=== PATIENT | female | born 1945 | race African-American/Black ===

== ENCOUNTER 2017-05-01 13:30 | Inpatient (IN) | payer MEDICARE ==
[~2017-05-01] VITALS: Ht 167.6 cm; Wt 53.5 kg
[~2017-05-01 13:30] MED LIST: ALPR0.5T PO; BENA20TA3 PO; BENZ100C86 PO; BENZ1LOZ60 MM; DEXT1DRO3 OP; ESTR1TAB17 PO; FLUR15CA14 PO; LEVA1.2526 IH; METH-612 PO; OMEP20CA10 PO; PROAIR ORI; ROSU10TA PO; SODI45SP35 NS; SPIRIVA ORI; SYMBICORT ORI; THEO80SO4 PO
[2017-05-01] MEDS ORDERED: ACETAMINOPHEN 325MG TABLET PO STA (17:11)
[2017-05-01] MEDS ORDERED: SODIUM CHLORIDE 0.9% 1000ML BAG (SEPSIS BOLUS) IV ONE (17:15)
[2017-05-01 17:43] LABS: CHLORIDE 102 mEq/L (98-107)
[2017-05-01 17:44] LABS: HEMATOCRIT. 40.6 % (36.0-48.0); HEMOGLOBIN. 13.4 g/dL (12.0-16.0); MEAN CORPUSCULAR VOLUME 87.6 fL (81.0-99.0); MEAN PLATELET VOLUME 7.5 fl (7.4-10.4); PLATELET 248 x1000/uL (130-400); PROTHROMBIN TIME 10.5 sec (9.4-11.6); RED BLOOD CELL COUNT 4.63 mill/uL (4.2-5.4); RED CELL DISTRIBUTION WIDTH 14.9 % (11.6-14.6)
[2017-05-01 17:52] LABS: CARBON DIOXIDE 25 mEq/L (21-32)
[2017-05-01 18:16] LABS: PLATELET ESTIMATE NORMAL
[2017-05-01 20:18] LABS: COLOR URINE YELLOW (YELLOW)
[2017-05-01 20:20] LABS: CLARITY URINE CLEAR (CLEAR)
[2017-05-01 20:22] LABS: PROTEIN URINE NEGATIVE (NEGATIVE)
[2017-05-01 20:23] LABS: KETONES URINE TRACE (NEGATIVE); NITRITE URINE NEGATIVE (NEGATIVE); OCCULT BLOOD URINE 1+ (NEGATIVE); UROBILINOGEN URINE 0.2 E.U./dL (0.2-1.0)
[2017-05-01 20:24] LABS: LEUKOCYTE ESTERASE URINE 2+ (NEGATIVE)
[2017-05-01] MEDS ORDERED: CEFTRIAXONE 1 G PREMIX 50 ML IV ONE (21:00)
[2017-05-01] MEDS ORDERED: DIPHENHYDRAMINE 50MG/ML VIAL IV ONE (21:00)
[2017-05-01] MEDS ORDERED: SODIUM CHLORIDE 0.9% 1,000 ML IV SCH (21:12)
[2017-05-01] MEDS ORDERED: IPRATROPIUM/ALBUTEROL 0.5-3(2.5)MG/3ML NEB HHN ONE (23:00)
[2017-05-02] MEDS ORDERED: ACETAMINOPHEN 325MG TABLET PO ONE ×2 (03:00→13:00)
[2017-05-02] MEDS ORDERED: ALBUTEROL (0.5%) 2.5MG/0.5ML NEB HHN ONE (11:30)
[2017-05-02] MEDS ORDERED: CEFTRIAXONE 1 G PREMIX 50 ML IV NR (12:00)
[2017-05-02] MEDS ORDERED: DIPHENHYDRAMINE 50MG/ML VIAL IV ONE (12:00)
[2017-05-02] MEDS ORDERED: LOSARTAN POTASSIUM 50 MG TABLET PO NR (13:15)
[2017-05-02 14:14] LABS: BG BASE EXCESS 0.5 mmol/L (-2.0-2.0); BG CARBOXYHEMOGLOBIN 0.3 % (0.5-1.5); BG DEOXYHEMOGLOBIN 4.2 % (0.0-5.0); BG HCO3 ACT 23.3 mmol/L (22.0-26.0); BG OXYGEN SATURATION 95.8 % (92.0-98.5); BG OXYHEMOGLOBIN 95.5 % (94.0-97.0); BG PCO2 31.7 mmHg (35.0-45.0); BG PH 7.485 (7.350-7.450); BG PO2 82.7 mmHg (75.0-100.0); BG SAMPLE SITE LEFT RADIAL; BG TOTAL HEMOGLOBIN 11.7 g/dL (12.0-18.0); BG VENT MODE ROOM AIR
[2017-05-02] MEDS ORDERED: IPRATROPIUM/ALBUTEROL 0.5-3(2.5)MG/3ML NEB HHN PRN (16:00)
[2017-05-02] MEDS ORDERED: METHYLPREDNISOLONE SOD SUCC 125 MG/2 ML VIAL IV NR (16:00)
[2017-05-02] MEDS: MONTELUKAST SODIUM 10MG TABLET PO SCH (16:00)
[2017-05-02] MEDS ORDERED: METHYLPREDNISOLONE SOD SUCC 40 MG/ML VIAL IV SCH (22:00)
[2017-05-03] MEDS: ACETAMINOPHEN 325MG TABLET PO PRN ×2 (02:16→13:33)
[2017-05-03] MEDS: IPRATROPIUM/ALBUTEROL 0.5-3(2.5)MG/3ML NEB HHN SCH ×3 (03:10→14:00)
[2017-05-03 06:15] LABS: HEMATOCRIT. 33.9 % (36.0-48.0); HEMOGLOBIN. 11.2 g/dL (12.0-16.0); MEAN CORPUSCULAR HEMOGLOBIN 28.9 pg (28.0-32.0); MEAN CORPUSCULAR VOLUME 87.2 fL (81.0-99.0); MEAN PLATELET VOLUME 7.4 fl (7.4-10.4); PLATELET 249 x1000/uL (130-400); RED BLOOD CELL COUNT 3.88 mill/uL (4.2-5.4); RED CELL DISTRIBUTION WIDTH 14.6 % (11.6-14.6)
[2017-05-03 06:32] LABS: CARBON DIOXIDE 29 mEq/L (21-32); CHLORIDE 105 mEq/L (98-107); HDL CHOLESTEROL 96 mg/dL (40-59); LDL CHOLESTEROL 71 mg/dL (5-100)
[2017-05-03 08:17] LABS: PLATELET ESTIMATE NORMAL
[2017-05-03 08:50] VITALS: BP 122/67
[2017-05-03 09:00] VITALS: BP 122/67
[2017-05-03 10:34] LABS: HEPATITIS B SURFACE ANTIGEN NEGATIVE
[2017-05-03 11:02] LABS: HEPATITIS B CORE AB IGM NEGATIVE
[2017-05-03 11:04] LABS: HEPATITIS A AB IGM NEGATIVE (NEGATIVE)
[2017-05-03 12:00] VITALS: BP 124/58
[2017-05-03] MEDS ORDERED: TEMA30CA PO (12:08)
[2017-05-03] MEDS ORDERED: TRAM50TA3 PO (12:09)
[2017-05-03] MEDS ORDERED: ATOR80TA PO (12:17)
[2017-05-03] MEDS: LOSARTAN POTASSIUM 50 MG TABLET PO SCH (13:33)
[2017-05-03] MEDS: CEFTRIAXONE 1 G PREMIX 50 ML IV SCH (13:33)
[2017-05-03] MEDS: DIPHENHYDRAMINE 50MG/ML VIAL IV PRN (15:15)
[2017-05-03 16:00] VITALS: BP 132/71
[2017-05-03 20:00] VITALS: BP 130/62
[2017-05-03] MEDS: TEMAZEPAM 15MG CAPSULE PO PRN (20:53)
[2017-05-03] MEDS: MONTELUKAST SODIUM 10MG TABLET PO SCH (21:00)
[2017-05-03] MEDS ORDERED: THEOPHYLLINE ANHYDROUS 80 MG/15 ML 120ML PO NR (21:00)
[2017-05-03] MEDS ORDERED: THEOPHYLLINE ANHYDROUS 80 MG/15 ML 120ML PO SCH (21:00)
[2017-05-03] MEDS: IPRATROPIUM/ALBUTEROL 0.5-3(2.5)MG/3ML NEB HHN PRN (21:17)
[2017-05-03] MEDS: ALPRAZOLAM 0.5 MG TABLET PO PRN (23:42)
[2017-05-04] VITALS: BP 110/64
[2017-05-04] MEDS: IPRATROPIUM/ALBUTEROL 0.5-3(2.5)MG/3ML NEB HHN PRN ×2 (02:08→05:11)
[2017-05-04 04:00] VITALS: BP 123/66
[2017-05-04] MEDS ORDERED: METHYLPREDNISOLONE SOD SUCC 40 MG/ML VIAL IV SCH (06:00)
[2017-05-04 06:59] LABS: BASOPHILS % 0.2 % (0.0-2.0); EOSINOPHILS % 0.1 % (0.0-5.0); HEMATOCRIT. 30.2 % (36.0-48.0); LYMPHOCYTES % 12.8 % (20.0-50.0); MEAN CORPUSCULAR HEMOGLOBIN 28.9 pg (28.0-32.0); MEAN CORPUSCULAR VOLUME 87.3 fL (81.0-99.0); MEAN PLATELET VOLUME 7.7 fl (7.4-10.4); MONOCYTES % 8.3 % (2.0-8.0); NEUTROPHILS % 78.6 % (40.0-76.0); PLATELET 264 x1000/uL (130-400); RED BLOOD CELL COUNT 3.46 mill/uL (4.2-5.4); RED CELL DISTRIBUTION WIDTH 14.9 % (11.6-14.6)
[2017-05-04 08:00] VITALS: BP 135/69
[2017-05-04] MEDS: THEOPHYLLINE ANHYDROUS 80 MG/15 ML 120ML PO SCH ×3 (08:08→22:09)
[2017-05-04] MEDS: LOSARTAN POTASSIUM 50 MG TABLET PO SCH (08:08)
[2017-05-04 08:26] LABS: CARBON DIOXIDE 30 mEq/L (21-32); CHLORIDE 107 mEq/L (98-107)
[2017-05-04] MEDS: IPRATROPIUM/ALBUTEROL 0.5-3(2.5)MG/3ML NEB HHN SCH (08:47)
[2017-05-04] MEDS: CEFTRIAXONE 1 G PREMIX 50 ML IV SCH (10:36)
[2017-05-04] MEDS: DIPHENHYDRAMINE 50MG/ML VIAL IV PRN (10:37)
[2017-05-04] MEDS: AZITHROMYCIN 500 MG TABLET PO SCH (11:24)
[2017-05-04 12:00] VITALS: BP 127/72
[2017-05-04] MEDS: PROMETHAZINE/DEXTROMETHORPHAN 6.25-15MG/5ML BOTTLE 120ML PO PRN (13:59)
[2017-05-04] MEDS: THROAT LOZENGES-BENZOCAINE/MENTH/CETYLPYRD CL LOZENGES MM PRN (14:03)
[2017-05-04] MEDS: ALPRAZOLAM 0.5 MG TABLET PO PRN (15:43)
[2017-05-04 16:00] VITALS: BP 137/72
[2017-05-04] MEDS: ALBUTEROL (0.083%) 2.5MG/3ML NEB HHN PRN ×2 (17:40→21:18)
[2017-05-04] MEDS: MONTELUKAST SODIUM 10MG TABLET PO SCH (22:00)
[2017-05-04 23:53] VITALS: BP 141/73
[2017-05-05] MEDS: ALBUTEROL (0.083%) 2.5MG/3ML NEB HHN PRN ×6 (01:08→21:10)
[2017-05-05 04:00] VITALS: BP 130/69
[2017-05-05] MEDS: THEOPHYLLINE ANHYDROUS 80 MG/15 ML 120ML PO SCH ×4 (06:08→21:54)
[2017-05-05 08:00] VITALS: BP 156/82
[2017-05-05] MEDS: PROMETHAZINE/DEXTROMETHORPHAN 6.25-15MG/5ML BOTTLE 120ML PO PRN (08:57)
[2017-05-05] MEDS: THROAT LOZENGES-BENZOCAINE/MENTH/CETYLPYRD CL LOZENGES MM PRN (09:00)
[2017-05-05] MEDS: AZITHROMYCIN 500 MG TABLET PO SCH (11:00)
[2017-05-05] MEDS: LOSARTAN POTASSIUM 50 MG TABLET PO SCH (11:00)
[2017-05-05 12:00] VITALS: BP 164/78
[2017-05-05] MEDS ORDERED: NON FORMULARY PATIENT HOME MED EA XX SCH (12:30)
[2017-05-05] MEDS ORDERED: AMINOPHYLLINE 500 MG/20 ML IV SCH (14:15)
[2017-05-05] MEDS: AMINOPHYLLINE IV SCH (15:41)
[2017-05-05] MEDS: SODIUM CHLORIDE 0.9% IV SCH (15:41)
[2017-05-05] MEDS: METHYLPREDNISOLONE SOD SUCC 40 MG/ML VIAL IV SCH ×2 (15:43→21:44)
[2017-05-05 16:00] VITALS: BP 143/76
[2017-05-05 20:00] VITALS: BP 176/86
[2017-05-05] MEDS: IPRATROPIUM BROMIDE (0.02%) 0.5MG/2.5ML NEB HHN SCH (20:57)
[2017-05-05] MEDS: ALPRAZOLAM 0.5 MG TABLET PO PRN (21:50)
[2017-05-05] MEDS: TEMAZEPAM 15MG CAPSULE PO PRN (21:50)
[2017-05-06] VITALS: BP 143/74
[2017-05-06] MEDS: IPRATROPIUM BROMIDE (0.02%) 0.5MG/2.5ML NEB HHN SCH ×3 (00:33→20:53)
[2017-05-06] MEDS: ALBUTEROL (0.083%) 2.5MG/3ML NEB HHN PRN ×6 (02:02→20:57)
[2017-05-06 04:00] VITALS: BP 160/86
[2017-05-06] MEDS: METHYLPREDNISOLONE SOD SUCC 40 MG/ML VIAL IV SCH ×3 (05:28→21:28)
[2017-05-06] MEDS: THEOPHYLLINE ANHYDROUS 80 MG/15 ML 120ML PO SCH ×3 (05:30→21:29)
[2017-05-06 07:08] LABS: HEMATOCRIT. 36.2 % (36.0-48.0); HEMOGLOBIN. 11.9 g/dL (12.0-16.0); MEAN CORPUSCULAR HEMOGLOBIN 28.8 pg (28.0-32.0); MEAN CORPUSCULAR VOLUME 87.6 fL (81.0-99.0); MEAN PLATELET VOLUME 7.5 fl (7.4-10.4); PLATELET 337 x1000/uL (130-400); RED BLOOD CELL COUNT 4.13 mill/uL (4.2-5.4); RED CELL DISTRIBUTION WIDTH 14.6 % (11.6-14.6)
[2017-05-06 07:36] LABS: CARBON DIOXIDE 34 mEq/L (21-32); CHLORIDE 100 mEq/L (98-107); PHOSPHORUS 4.1 mg/dL (2.5-4.9); T4 FREE 1.07 ng/dL (0.76-1.46); THEOPHYLLINE 11.2 ug/mL (10-20)
[2017-05-06 08:00] VITALS: BP 134/76
[2017-05-06] MEDS: AZITHROMYCIN 500 MG TABLET PO SCH (08:11)
[2017-05-06] MEDS: LOSARTAN POTASSIUM 50 MG TABLET PO SCH (08:11)
[2017-05-06 08:30] LABS: BG BASE EXCESS 8.3 mmol/L (-2.0-2.0); BG CARBOXYHEMOGLOBIN 0.3 % (0.5-1.5); BG DEOXYHEMOGLOBIN 3.5 % (0.0-5.0); BG FRACTION INSPIRED OXYGEN 28; BG HCO3 ACT 33.1 mmol/L (22.0-26.0); BG OXYGEN SATURATION 96.5 % (92.0-98.5); BG OXYHEMOGLOBIN 96.2 % (94.0-97.0); BG PH 7.466 (7.350-7.450); BG PO2 81.3 mmHg (75.0-100.0); BG SAMPLE SITE RIGHT RADIAL; BG TOTAL HEMOGLOBIN 12.2 g/dL (12.0-18.0); BG VENT MODE NASAL CANNULA
[2017-05-06 16:00] VITALS: BP 110/74
[2017-05-06 16:23] LABS: ATYPICAL LYMPHOCYTES 2; NUCLEATED RED BLOOD CELLS 1 /100 WBC; PLATELET ESTIMATE NORMAL
[2017-05-06] MEDS: PROMETHAZINE/DEXTROMETHORPHAN 6.25-15MG/5ML BOTTLE 120ML PO PRN (16:46)
[2017-05-06] MEDS: AMINOPHYLLINE IV SCH (18:46)
[2017-05-06] MEDS: SODIUM CHLORIDE 0.9% IV SCH (18:46)
[2017-05-06 20:00] VITALS: BP 132/72
[2017-05-06] MEDS: ALPRAZOLAM 0.5 MG TABLET PO PRN (21:28)
[2017-05-06] MEDS: TEMAZEPAM 15MG CAPSULE PO PRN (21:28)
[2017-05-07] VITALS: BP 146/84
[2017-05-07] MEDS: ALBUTEROL (0.083%) 2.5MG/3ML NEB HHN PRN ×2 (00:33→04:37)
[2017-05-07] MEDS ORDERED: METHYLPREDNISOLONE SOD SUCC 40 MG/ML VIAL IV SCH (02:00)
[2017-05-07 04:00] VITALS: BP 158/87
[2017-05-07 08:05] VITALS: BP 166/74
[2017-05-07] MEDS: LOSARTAN POTASSIUM 50 MG TABLET PO SCH (08:28)
[2017-05-07 09:23] VITALS: BP 166/74
[2017-05-07] MEDS ORDERED: THEOPHYLLINE ANHYDROUS 80 MG/15 ML 120ML PO SCH (21:00)
== END 2017-05-07 11:20 | disposition home or self-care (01) | DRG 871 ==
LOC: ER 14:49 → EDBEDREQSVC 21:18 → EDBEDREQ 21:18 → SUPCPDRO 05-02 11:08 → ENRESERV 05-03 07:23 → 8WST 05-03 07:24
PROVIDERS: ADMIT Internal Medicine Pulmonary Disease; ATTEND Internal Medicine Pulmonary Disease
PROC: 05H533Z Insertion of Infusion Device into Right Subclavian Vein, Percutaneous Approach (ICD-10-PCS; principal; 2017-05-05)
PROC: B5161ZA Fluoroscopy of Right Subclavian Vein using Low Osmolar Contrast, Guidance (ICD-10-PCS; 2017-05-05)
PROC: B546ZZA Ultrasonography of Right Subclavian Vein, Guidance (ICD-10-PCS; 2017-05-05)
DX: A41.9 Sepsis, unspecified organism (principal); J18.9 Pneumonia, unspecified organism; E09.9 Drug or chemical induced diabetes mellitus without complications; D64.9 Anemia, unspecified; J44.0 Chronic obstructive pulmonary disease with (acute) lower respiratory infection; E78.5 Hyperlipidemia, unspecified; F41.9 Anxiety disorder, unspecified; J44.1 Chronic obstructive pulmonary disease with (acute) exacerbation; N39.0 Urinary tract infection, site not specified; R26.9 Unspecified abnormalities of gait and mobility; J20.9 Acute bronchitis, unspecified; I10 Essential (primary) hypertension; I25.10 Atherosclerotic heart disease of native coronary artery without angina pectoris; T38.0X5A Adverse effect of glucocorticoids and synthetic analogues, initial encounter; Z88.6 Allergy status to analgesic agent; Z88.1 Allergy status to other antibiotic agents; Z88.5 Allergy status to narcotic agent; Z88.2 Allergy status to sulfonamides; Z88.8 Allergy status to other drugs, medicaments and biological substances; Z82.49 Family history of ischemic heart disease and other diseases of the circulatory system
CPT/HCPCS: 36415; 36569; 36600; 71045; 71046; 76937; 77001; 80048; 80053; 80061; 80198; 81001; 82375; 82805; 82962; 83036; 83605; 83735; 83880; 84100; 84134; 84439; 84443; 84480; 85025; 85610; 86705; 86709; 86803; 87040; 87086; 87340; 87804; 93005; 94640; 94664; 97162; 97165; C1725; J0280; J0696; J1200; J2920; J2930; J7030; J7040; J7050; J7611; J7620

== ENCOUNTER 2018-08-01 13:13 | Inpatient (IN) | payer MEDICARE ==
[~2018-08-01] VITALS: Ht 152.4 cm; Wt 54.9 kg
[~2018-08-01 13:13] MED LIST changes: +ATOR80TA PO; +BENA20TA10 PO; -BENA20TA3 PO; -BENZ100C86 PO; -BENZ1LOZ60 MM; -ESTR1TAB17 PO; -FLUR15CA14 PO; -ROSU10TA PO; -SODI45SP35 NS; +TEMA30CA PO; +TRAM50TA3 PO
[2018-08-01] MEDS ORDERED: IPRATROPIUM/ALBUTEROL 0.5-3(2.5)MG/3ML NEB HHN ONE (14:30)
[2018-08-01 14:31] LABS: CLARITY URINE CLOUDY (CLEAR); COLOR URINE DARK YELLOW (YELLOW); KETONES URINE TRACE (NEGATIVE); LEUKOCYTE ESTERASE URINE 1+ (NEGATIVE); NITRITE URINE NEGATIVE (NEGATIVE); OCCULT BLOOD URINE 1+ (NEGATIVE); PH URINE 5.5 (4.5-8.0); PROTEIN URINE 2+ (NEGATIVE); SPECIFIC GRAVITY URINE 1.028 (1.005-1.030)
[2018-08-01 14:32] LABS: BASOPHILS % 0.5 % (0.0-2.0); EOSINOPHILS % 0.2 % (0.0-5.0); HEMATOCRIT. 34.1 % (36.0-48.0); LYMPHOCYTES % 14.1 % (20.0-50.0); MEAN CORPUSCULAR HEMOGLOBIN 27.8 pg (28.0-32.0); MEAN PLATELET VOLUME 7.4 fl (7.4-10.4); MONOCYTES % 14.8 % (2.0-8.0); NEUTROPHILS % 70.4 % (40.0-76.0); PLATELET 303 x1000/uL (130-400); RED BLOOD CELL COUNT 3.97 mill/uL (4.2-5.4); RED CELL DISTRIBUTION WIDTH 15.7 % (11.6-14.6)
[2018-08-01 14:39] LABS: CHLORIDE 99 mEq/L (98-107)
[2018-08-01 14:47] LABS: *AMPHETAMINES SCREEN URINE NEGATIVE (NEGATIVE); *BARBITURATES SCREEN URINE NEGATIVE (NEGATIVE); *BENZODIAZEPINES SCREEN URINE NEGATIVE (NEGATIVE); *COCAINE SCREEN URINE NEGATIVE (NEGATIVE); METHADONE URINE SCREEN NEGATIVE (NEGATIVE); OPIATES URINE SCREEN NEGATIVE (NEGATIVE)
[2018-08-01 14:48] LABS: CANNABINOID URINE SCREEN NEGATIVE (NEGATIVE); PHENCYCLIDINE URINE SCREEN NEGATIVE (NEGATIVE)
[2018-08-01] MEDS ORDERED: ALBUTEROL (0.083%) 2.5MG/3ML NEB HHN ONE (15:00)
[2018-08-01] MEDS ORDERED: PREDNISONE 5MG TABLET PO ONE (15:15)
[2018-08-01] MEDS ORDERED: METHYLPREDNISOLONE SOD SUCC 40 MG/ML VIAL IV ONE (15:45)
[2018-08-01] MEDS ORDERED: AZITHROMYCIN 500 MG in DEXT 5% WATER 250 ML IV SCH (18:00)
[2018-08-02] VITALS (7 sets, daily range): BP systolic 119–136; BP diastolic 53–66
[2018-08-02] MEDS ORDERED: ACETAMINOPHEN 325MG TABLET PO PRN (01:30)
[2018-08-02] MEDS ORDERED: AZITHROMYCIN 500 MG in DEXT 5% WATER 250 ML IV SCH (01:30)
[2018-08-02] MEDS ORDERED: ALBUTEROL (0.083%) 2.5MG/3ML NEB HHN PRN ×2 (01:30→03:00)
[2018-08-02] MEDS: TEMAZEPAM 15MG CAPSULE PO PRN ×2 (01:46→21:26)
[2018-08-02] MEDS: ALPRAZOLAM 0.5 MG TABLET PO PRN ×2 (02:54→10:40)
[2018-08-02] MEDS ORDERED: THEOPHYLLINE ANHYDROUS 80 MG/15 ML 120ML PO SCH ×3 (03:15→06:00)
[2018-08-02] MEDS ORDERED: METHOCARBAMOL 750MG TABLET PO PRN (03:15)
[2018-08-02] MEDS: SODIUM CHLORIDE 0.9% 1,000 ML IV SCH ×2 (04:48→18:30)
[2018-08-02] MEDS: ALBUTEROL (0.083%) 2.5MG/3ML NEB HHN SCH ×5 (04:58→23:37)
[2018-08-02] MEDS ORDERED: ALBUTEROL (0.083%) 2.5MG/3ML NEB HHN SCH (06:00)
[2018-08-02] MEDS: OMEPRAZOLE 20MG CAPSULE EXTENDED RELEASE PO SCH (07:00)
[2018-08-02] MEDS: BENAZEPRIL 10MG TABLET PO SCH (10:28)
[2018-08-02] MEDS: PROMETHAZINE/DEXTROMETHORPHAN 6.25-15MG/5ML BOTTLE 120ML PO PRN ×2 (10:40→21:57)
[2018-08-02] MEDS ORDERED: DIPHENHYDRAMINE 25MG CAPSULE PO PRN (12:45)
[2018-08-02] MEDS ORDERED: ACETAMINOPHEN 500MG TABLET PO PRN (12:45)
[2018-08-02] MEDS: TRAMADOL 50MG TABLET PO PRN (13:45)
[2018-08-02] MEDS: METHYLPREDNISOLONE SOD SUCC 40 MG/ML VIAL IV SCH ×2 (13:49→21:26)
[2018-08-02] MEDS: CYCLOBENZAPRINE 10MG TABLET PO SCH ×2 (14:11→21:26)
[2018-08-02] MEDS: AZITHROMYCIN 500 MG in DEXT 5% WATER 250 ML IV SCH (18:30)
[2018-08-02] MEDS ORDERED: ATORVASTATIN CALCIUM 20MG TABLET PO SCH (21:00)
[2018-08-02] MEDS ORDERED: CYCLOBENZAPRINE 10MG TABLET PO SCH (21:00)
[2018-08-02] MEDS: GUAIFENESIN 600MG ER TABLET PO SCH (21:26)
[2018-08-02] MEDS: ATORVASTATIN CALCIUM 40MG TABLET PO SCH (21:26)
[2018-08-02] MEDS: POLYVINYL ALCOHOL OPHTH DROPS 15ML BOTHEYE PRN (22:21)
[2018-08-03] MEDS: ALBUTEROL (0.083%) 2.5MG/3ML NEB HHN SCH ×4 (02:43→20:41)
[2018-08-03 04:00] VITALS: BP 127/56
[2018-08-03 06:51] LABS: HEMOGLOBIN. 9.1 g/dL (12.0-16.0); MEAN CORPUSCULAR HEMOGLOBIN 27.8 pg (28.0-32.0); MEAN CORPUSCULAR VOLUME 85.7 fL (81.0-99.0); MEAN PLATELET VOLUME 7.7 fl (7.4-10.4); PLATELET 321 x1000/uL (130-400); RED BLOOD CELL COUNT 3.27 mill/uL (4.2-5.4); RED CELL DISTRIBUTION WIDTH 15.9 % (11.6-14.6)
[2018-08-03] MEDS: OMEPRAZOLE 20MG CAPSULE EXTENDED RELEASE PO SCH (07:01)
[2018-08-03] MEDS: METHYLPREDNISOLONE SOD SUCC 40 MG/ML VIAL IV SCH ×2 (07:01→13:47)
[2018-08-03] MEDS: PROMETHAZINE/DEXTROMETHORPHAN 6.25-15MG/5ML BOTTLE 120ML PO PRN ×2 (07:02→17:54)
[2018-08-03 07:46] LABS: CHLORIDE 105 mEq/L (98-107)
[2018-08-03 07:54] LABS: PHOSPHORUS 3.1 mg/dL (2.5-4.9)
[2018-08-03 08:00] VITALS: BP 136/63
[2018-08-03] MEDS: BENAZEPRIL 10MG TABLET PO SCH (09:14)
[2018-08-03] MEDS: GUAIFENESIN 600MG ER TABLET PO SCH ×2 (09:14→20:54)
[2018-08-03] MEDS: CYCLOBENZAPRINE 10MG TABLET PO SCH ×2 (09:14→20:54)
[2018-08-03 12:00] VITALS: BP 142/71
[2018-08-03 13:13] LABS: PLATELET ESTIMATE NORMAL
[2018-08-03] MEDS: SODIUM CHLORIDE 0.9% 1,000 ML IV SCH ×2 (13:47→19:30)
[2018-08-03 16:00] VITALS: BP 160/73
[2018-08-03] MEDS: AZITHROMYCIN 500 MG in DEXT 5% WATER 250 ML IV SCH (17:35)
[2018-08-03] MEDS: DIPHENHYDRAMINE 50MG/ML VIAL IV PRN ×2 (17:35→22:48)
[2018-08-03] MEDS: TRAMADOL 50MG TABLET PO PRN (17:43)
[2018-08-03 20:00] VITALS: BP 166/73
[2018-08-03] MEDS: ATORVASTATIN CALCIUM 40MG TABLET PO SCH (20:54)
[2018-08-03] MEDS: POLYVINYL ALCOHOL OPHTH DROPS 15ML BOTHEYE PRN (20:54)
[2018-08-03] MEDS: TEMAZEPAM 15MG CAPSULE PO PRN (20:54)
[2018-08-03] MEDS ORDERED: MEROPENEM 1,000 MG in SODIUM CHLORIDE 0.9% 100 ML IV SCH (22:00)
[2018-08-03] MEDS: MEROPENEM 1000MG in NORMAL SALINE 100ML IV SCH (22:54)
[2018-08-04] VITALS: BP 124/61
[2018-08-04] MEDS ORDERED: AMIKACIN SULFATE 400 MG in SODIUM CHLORIDE 0.9% 100 ML IV NR ×2
[2018-08-04] MEDS: DIPHENHYDRAMINE 50MG/ML VIAL IV PRN ×3 (00:48→22:28)
[2018-08-04] MEDS: ALBUTEROL (0.083%) 2.5MG/3ML NEB HHN SCH ×6 (01:13→20:14)
[2018-08-04] MEDS: PROMETHAZINE/DEXTROMETHORPHAN 6.25-15MG/5ML BOTTLE 120ML PO PRN ×2 (01:14→20:30)
[2018-08-04 04:00] VITALS: BP 133/62
[2018-08-04] MEDS: SODIUM CHLORIDE 0.9% 1,000 ML IV SCH ×2 (05:17→22:28)
[2018-08-04] MEDS: OMEPRAZOLE 20MG CAPSULE EXTENDED RELEASE PO SCH (06:30)
[2018-08-04 06:58] LABS: HEMATOCRIT. 28.7 % (36.0-48.0); HEMOGLOBIN. 9.2 g/dL (12.0-16.0); MEAN CORPUSCULAR HEMOGLOBIN 27.6 pg (28.0-32.0); MEAN CORPUSCULAR VOLUME 86.5 fL (81.0-99.0); MEAN PLATELET VOLUME 7.7 fl (7.4-10.4); PLATELET 383 x1000/uL (130-400); RED BLOOD CELL COUNT 3.32 mill/uL (4.2-5.4); RED CELL DISTRIBUTION WIDTH 16.2 % (11.6-14.6)
[2018-08-04 07:45] LABS: CHLORIDE 108 mEq/L (98-107)
[2018-08-04 07:50] LABS: PHOSPHORUS 2.6 mg/dL (2.5-4.9)
[2018-08-04 08:00] VITALS: BP 149/73
[2018-08-04] MEDS ORDERED: ECONAZOLE NITRATE 1% CREAM 15GM TOP SCH (09:00)
[2018-08-04] MEDS: METHYLPREDNISOLONE SOD SUCC 40 MG/ML VIAL IV SCH (09:39)
[2018-08-04] MEDS: GUAIFENESIN 600MG ER TABLET PO SCH ×2 (09:39→20:30)
[2018-08-04] MEDS: MEROPENEM 1000MG in NORMAL SALINE 100ML IV SCH ×2 (09:39→23:09)
[2018-08-04] MEDS: CYCLOBENZAPRINE 10MG TABLET PO SCH ×2 (09:39→20:30)
[2018-08-04] MEDS: BENAZEPRIL 10MG TABLET PO SCH (09:39)
[2018-08-04] MEDS: ENOXAPARIN 40MG/0.4ML SYR SUBCUT SCH (09:41)
[2018-08-04] MEDS: ALPRAZOLAM 0.5 MG TABLET PO PRN ×2 (09:58→22:28)
[2018-08-04 12:00] VITALS: BP 132/60
[2018-08-04] MEDS: AMIKACIN SULFATE 350 MG in SODIUM CHLORIDE 0.9% 100 ML IV SCH (12:31)
[2018-08-04] MEDS ORDERED: CLONIDINE 0.1MG TABLET PO PRN (15:15)
[2018-08-04 15:46] LABS: PLATELET ESTIMATE NORMAL
[2018-08-04 16:00] VITALS: BP 161/86
[2018-08-04] MEDS: CLOTRIMAZOLE/BETAMETHASONE 1/0.05% CREAM 15GM TOP SCH ×2 (16:08→20:31)
[2018-08-04] MEDS: AMLODIPINE 2.5MG TABLET PO SCH ×2 (16:08→20:30)
[2018-08-04 17:44] LABS: TOTAL IRON BINDING CAPACITY 269 ug/dL (250-450)
[2018-08-04 18:13] LABS: VITAMIN B12 SERUM >2000 pg/mL pg/mL (211-911)
[2018-08-04 20:00] VITALS: BP 155/69
[2018-08-04] MEDS: POLYVINYL ALCOHOL OPHTH DROPS 15ML BOTHEYE PRN (20:29)
[2018-08-04] MEDS: ATORVASTATIN CALCIUM 40MG TABLET PO SCH (20:30)
[2018-08-04] MEDS: TEMAZEPAM 15MG CAPSULE PO PRN (23:09)
[2018-08-05] VITALS: BP 174/83
[2018-08-05] MEDS: ALBUTEROL (0.083%) 2.5MG/3ML NEB HHN SCH ×6 (00:10→20:32)
[2018-08-05 04:00] VITALS: BP 148/69
[2018-08-05] MEDS: OMEPRAZOLE 20MG CAPSULE EXTENDED RELEASE PO SCH (05:55)
[2018-08-05] MEDS: PROMETHAZINE/DEXTROMETHORPHAN 6.25-15MG/5ML BOTTLE 120ML PO PRN (05:56)
[2018-08-05 06:28] LABS: CHLORIDE 105 mEq/L (98-107)
[2018-08-05 06:40] LABS: CREATINE KINASE 57 IU/L (26-192); LDL CHOLESTEROL 58 mg/dL (5-100)
[2018-08-05 06:42] LABS: HDL CHOLESTEROL 63 mg/dL (40-59)
[2018-08-05 08:00] VITALS: BP 145/75
[2018-08-05] MEDS: METHYLPREDNISOLONE SOD SUCC 40 MG/ML VIAL IV SCH (09:53)
[2018-08-05] MEDS: CLOTRIMAZOLE/BETAMETHASONE 1/0.05% CREAM 15GM TOP SCH ×2 (09:53→21:34)
[2018-08-05] MEDS: CYCLOBENZAPRINE 10MG TABLET PO SCH ×2 (09:54→21:33)
[2018-08-05] MEDS: BENAZEPRIL 10MG TABLET PO SCH (09:54)
[2018-08-05] MEDS: GUAIFENESIN 600MG ER TABLET PO SCH ×2 (09:54→21:33)
[2018-08-05] MEDS: AMLODIPINE 2.5MG TABLET PO SCH ×2 (09:55→21:34)
[2018-08-05] MEDS: ENOXAPARIN 40MG/0.4ML SYR SUBCUT SCH (09:56)
[2018-08-05] MEDS: MEROPENEM 1000MG in NORMAL SALINE 100ML IV SCH ×2 (09:56→21:56)
[2018-08-05] MEDS: DIPHENHYDRAMINE 50MG/ML VIAL IV PRN ×3 (10:10→21:35)
[2018-08-05] MEDS: POLYVINYL ALCOHOL OPHTH DROPS 15ML BOTHEYE PRN ×2 (10:10→21:35)
[2018-08-05 12:00] VITALS: BP 148/71
[2018-08-05] MEDS: AMIKACIN SULFATE 350 MG in SODIUM CHLORIDE 0.9% 100 ML IV SCH ×4 (12:59→22:53)
[2018-08-05] MEDS: THEOPHYLLINE ANHYDROUS 80 MG/15 ML 120ML PO SCH ×2 (13:21→21:35)
[2018-08-05 16:00] VITALS: BP 167/82
[2018-08-05 20:00] VITALS: BP 138/72
[2018-08-05] MEDS: ATORVASTATIN CALCIUM 40MG TABLET PO SCH (21:33)
[2018-08-05] MEDS: TEMAZEPAM 15MG CAPSULE PO PRN (21:34)
[2018-08-05] MEDS: SODIUM CHLORIDE 0.9% 1,000 ML IV SCH (21:57)
[2018-08-06] VITALS: BP 143/68
[2018-08-06] MEDS: ALBUTEROL (0.083%) 2.5MG/3ML NEB HHN SCH ×6 (00:11→20:45)
[2018-08-06 04:00] VITALS: BP 145/58
[2018-08-06] MEDS: THEOPHYLLINE ANHYDROUS 80 MG/15 ML 120ML PO SCH ×3 (06:06→21:28)
[2018-08-06] MEDS: PROMETHAZINE/DEXTROMETHORPHAN 6.25-15MG/5ML BOTTLE 120ML PO PRN (06:06)
[2018-08-06] MEDS: OMEPRAZOLE 20MG CAPSULE EXTENDED RELEASE PO SCH (06:06)
[2018-08-06 06:29] LABS: CHLORIDE 101 mEq/L (98-107)
[2018-08-06 06:31] LABS: HEMATOCRIT. 30.1 % (36.0-48.0); HEMOGLOBIN. 9.5 g/dL (12.0-16.0); MEAN CORPUSCULAR HEMOGLOBIN 27.3 pg (28.0-32.0); MEAN CORPUSCULAR VOLUME 86.4 fL (81.0-99.0); MEAN PLATELET VOLUME 6.7 fl (7.4-10.4); PLATELET 458 x1000/uL (130-400); RED BLOOD CELL COUNT 3.49 mill/uL (4.2-5.4); RED CELL DISTRIBUTION WIDTH 15.9 % (11.6-14.6)
[2018-08-06 06:52] LABS: THEOPHYLLINE 4.2 ug/mL (10-20)
[2018-08-06 08:00] VITALS: BP 142/64
[2018-08-06 09:38] LABS: NUCLEATED RED BLOOD CELLS 1 /100 WBC; PLATELET ESTIMATE INCREASED
[2018-08-06] MEDS: ENOXAPARIN 40MG/0.4ML SYR SUBCUT SCH (09:41)
[2018-08-06] MEDS: MEROPENEM 1000MG in NORMAL SALINE 100ML IV SCH (09:41)
[2018-08-06] MEDS: METHYLPREDNISOLONE SOD SUCC 40 MG/ML VIAL IV SCH (09:41)
[2018-08-06] MEDS: AMLODIPINE 2.5MG TABLET PO SCH ×2 (09:42→21:26)
[2018-08-06] MEDS: GUAIFENESIN 600MG ER TABLET PO SCH ×2 (09:42→21:25)
[2018-08-06] MEDS: CYCLOBENZAPRINE 10MG TABLET PO SCH ×2 (09:43→21:26)
[2018-08-06] MEDS: BENAZEPRIL 10MG TABLET PO SCH (09:43)
[2018-08-06] MEDS: ALPRAZOLAM 0.5 MG TABLET PO PRN (10:17)
[2018-08-06 11:47] VITALS: BP 134/70
[2018-08-06] MEDS: SODIUM CHLORIDE 0.9% 1,000 ML IV SCH (13:49)
[2018-08-06] MEDS: CLOTRIMAZOLE/BETAMETHASONE 1/0.05% CREAM 15GM TOP SCH ×2 (13:52→21:27)
[2018-08-06] MEDS: AMIKACIN SULFATE 350 MG in SODIUM CHLORIDE 0.9% 100 ML IV SCH (13:54)
[2018-08-06] MEDS: DIPHENHYDRAMINE 50MG/ML VIAL IV PRN ×3 (13:59→21:28)
[2018-08-06 16:00] VITALS: BP 127/75
[2018-08-06] MEDS ORDERED: MEROPENEM 2,000 MG in SODIUM CHLORIDE 0.9% 100 ML IV SCH (16:00)
[2018-08-06] MEDS: BENZONATATE 100MG CAPSULE PO SCH (18:15)
[2018-08-06] MEDS: MEROPENEM 2,000 MG in SODIUM CHLORIDE 0.9% 100 ML IV SCH (18:15)
[2018-08-06 20:00] VITALS: BP 149/74
[2018-08-06] MEDS: POLYVINYL ALCOHOL OPHTH DROPS 15ML BOTHEYE PRN (21:28)
[2018-08-06] MEDS: TEMAZEPAM 15MG CAPSULE PO PRN (21:37)
[2018-08-06] MEDS: TRAMADOL 50MG TABLET PO PRN (21:38)
[2018-08-07] VITALS: BP 153/71
[2018-08-07] MEDS: DIPHENHYDRAMINE 50MG/ML VIAL IV PRN ×4 (00:19→17:10)
[2018-08-07] MEDS: AMIKACIN SULFATE 350 MG in SODIUM CHLORIDE 0.9% 100 ML IV SCH ×2 (00:19→12:29)
[2018-08-07] MEDS: ALBUTEROL (0.083%) 2.5MG/3ML NEB HHN SCH ×7 (00:36→23:47)
[2018-08-07] MEDS: BENZONATATE 100MG CAPSULE PO SCH ×3 (01:32→17:10)
[2018-08-07] MEDS: SODIUM CHLORIDE 0.9% 1,000 ML IV SCH ×2 (03:30→17:10)
[2018-08-07 04:00] VITALS: BP 149/69
[2018-08-07] MEDS: OMEPRAZOLE 20MG CAPSULE EXTENDED RELEASE PO SCH (05:47)
[2018-08-07] MEDS: MEROPENEM 2,000 MG in SODIUM CHLORIDE 0.9% 100 ML IV SCH ×2 (05:47→17:10)
[2018-08-07] MEDS: THEOPHYLLINE ANHYDROUS 80 MG/15 ML 120ML PO SCH ×3 (06:33→21:44)
[2018-08-07 07:17] LABS: HEMATOCRIT. 32.4 % (36.0-48.0); HEMOGLOBIN. 10.4 g/dL (12.0-16.0); MEAN CORPUSCULAR HEMOGLOBIN 27.8 pg (28.0-32.0); MEAN CORPUSCULAR VOLUME 86.7 fL (81.0-99.0); MEAN PLATELET VOLUME 7.1 fl (7.4-10.4); PLATELET 516 x1000/uL (130-400); RED BLOOD CELL COUNT 3.74 mill/uL (4.2-5.4); RED CELL DISTRIBUTION WIDTH 15.9 % (11.6-14.6)
[2018-08-07 07:43] LABS: CHLORIDE 99 mEq/L (98-107)
[2018-08-07 08:00] VITALS: BP 155/74
[2018-08-07] MEDS: GUAIFENESIN 600MG ER TABLET PO SCH ×2 (09:13→21:43)
[2018-08-07] MEDS: CYCLOBENZAPRINE 10MG TABLET PO SCH ×2 (09:14→21:43)
[2018-08-07] MEDS: BENAZEPRIL 10MG TABLET PO SCH (09:14)
[2018-08-07] MEDS: AMLODIPINE 2.5MG TABLET PO SCH ×2 (09:14→21:43)
[2018-08-07] MEDS: PREDNISONE 20MG TABLET PO SCH (09:14)
[2018-08-07] MEDS: ENOXAPARIN 40MG/0.4ML SYR SUBCUT SCH (09:16)
[2018-08-07] MEDS: CLOTRIMAZOLE/BETAMETHASONE 1/0.05% CREAM 15GM TOP SCH ×2 (09:16→21:43)
[2018-08-07] MEDS: POLYVINYL ALCOHOL OPHTH DROPS 15ML BOTHEYE PRN (09:27)
[2018-08-07] MEDS: THROAT LOZENGES-BENZOCAINE/MENTH/CETYLPYRD CL LOZENGES MM PRN (09:27)
[2018-08-07] MEDS: PROMETHAZINE/DEXTROMETHORPHAN 6.25-15MG/5ML BOTTLE 120ML PO PRN (09:28)
[2018-08-07 10:18] LABS: NUCLEATED RED BLOOD CELLS 1 /100 WBC; PLATELET ESTIMATE INCREASED
[2018-08-07 12:00] VITALS: BP 142/65
[2018-08-07 16:00] VITALS: BP 146/73
[2018-08-07 20:00] VITALS: BP 130/70
[2018-08-08] VITALS: BP 153/68
[2018-08-08] MEDS: BENZONATATE 100MG CAPSULE PO SCH ×3 (01:04→16:45)
[2018-08-08 04:00] VITALS: BP 149/63
[2018-08-08] MEDS: ALBUTEROL (0.083%) 2.5MG/3ML NEB HHN SCH ×6 (04:15→23:58)
[2018-08-08 06:02] LABS: HEMATOCRIT. 29.5 % (36.0-48.0); HEMOGLOBIN. 9.6 g/dL (12.0-16.0); MEAN CORPUSCULAR VOLUME 86.1 fL (81.0-99.0); MEAN PLATELET VOLUME 6.4 fl (7.4-10.4); PLATELET 479 x1000/uL (130-400); RED BLOOD CELL COUNT 3.43 mill/uL (4.2-5.4); RED CELL DISTRIBUTION WIDTH 15.6 % (11.6-14.6)
[2018-08-08 06:14] LABS: CHLORIDE 101 mEq/L (98-107)
[2018-08-08] MEDS: OMEPRAZOLE 20MG CAPSULE EXTENDED RELEASE PO SCH (06:34)
[2018-08-08] MEDS: THEOPHYLLINE ANHYDROUS 80 MG/15 ML 120ML PO SCH ×3 (06:35→21:12)
[2018-08-08] MEDS: MEROPENEM 2,000 MG in SODIUM CHLORIDE 0.9% 100 ML IV SCH ×2 (06:36→20:14)
[2018-08-08] MEDS: SODIUM CHLORIDE 0.9% 1,000 ML IV SCH ×2 (06:38→19:00)
[2018-08-08] MEDS: DIPHENHYDRAMINE 50MG/ML VIAL IV PRN ×2 (07:01→18:59)
[2018-08-08 08:00] VITALS: BP 144/61
[2018-08-08] MEDS: CYCLOBENZAPRINE 10MG TABLET PO SCH ×2 (09:26→20:23)
[2018-08-08] MEDS: PREDNISONE 20MG TABLET PO SCH (09:26)
[2018-08-08] MEDS: AMLODIPINE 2.5MG TABLET PO SCH ×2 (09:26→20:28)
[2018-08-08] MEDS: ENOXAPARIN 40MG/0.4ML SYR SUBCUT SCH (09:26)
[2018-08-08] MEDS: GUAIFENESIN 600MG ER TABLET PO SCH ×2 (09:27→20:23)
[2018-08-08] MEDS: BENAZEPRIL 10MG TABLET PO SCH (09:27)
[2018-08-08] MEDS: CLOTRIMAZOLE/BETAMETHASONE 1/0.05% CREAM 15GM TOP SCH ×2 (09:28→20:28)
[2018-08-08] MEDS: PROMETHAZINE/DEXTROMETHORPHAN 6.25-15MG/5ML BOTTLE 120ML PO PRN (10:39)
[2018-08-08 12:00] VITALS: BP 120/64
[2018-08-08 16:00] VITALS: BP 145/79
[2018-08-08] MEDS: THROAT LOZENGES-BENZOCAINE/MENTH/CETYLPYRD CL LOZENGES MM PRN ×2 (16:45→20:43)
[2018-08-08 20:00] VITALS: BP 137/69
[2018-08-08] MEDS: POLYVINYL ALCOHOL OPHTH DROPS 15ML BOTHEYE PRN (20:22)
[2018-08-08] MEDS: ALPRAZOLAM 0.5 MG TABLET PO PRN (20:43)
[2018-08-09] VITALS: BP 119/52
[2018-08-09] MEDS: BENZONATATE 100MG CAPSULE PO SCH ×3 (00:23→16:35)
[2018-08-09] MEDS: TEMAZEPAM 15MG CAPSULE PO PRN (00:25)
[2018-08-09 03:57] LABS: NUCLEATED RED BLOOD CELLS 1 /100 WBC; PLATELET ESTIMATE SLIGHTLY INCREASED
[2018-08-09 04:00] VITALS: BP 138/71
[2018-08-09] MEDS: ALBUTEROL (0.083%) 2.5MG/3ML NEB HHN SCH ×5 (04:26→20:37)
[2018-08-09] MEDS: OMEPRAZOLE 20MG CAPSULE EXTENDED RELEASE PO SCH (06:20)
[2018-08-09] MEDS: THEOPHYLLINE ANHYDROUS 80 MG/15 ML 120ML PO SCH ×3 (06:22→21:12)
[2018-08-09 08:00] VITALS: BP 147/75
[2018-08-09] MEDS: DIPHENHYDRAMINE 50MG/ML VIAL IV PRN ×2 (08:41→20:43)
[2018-08-09] MEDS: MEROPENEM 2,000 MG in SODIUM CHLORIDE 0.9% 100 ML IV SCH ×2 (08:41→21:16)
[2018-08-09] MEDS: GUAIFENESIN 600MG ER TABLET PO SCH ×2 (08:42→20:43)
[2018-08-09] MEDS: CLOTRIMAZOLE/BETAMETHASONE 1/0.05% CREAM 15GM TOP SCH ×2 (08:42→20:44)
[2018-08-09] MEDS: ENOXAPARIN 40MG/0.4ML SYR SUBCUT SCH (08:42)
[2018-08-09] MEDS: AMLODIPINE 2.5MG TABLET PO SCH ×2 (08:42→20:43)
[2018-08-09] MEDS: SODIUM CHLORIDE 0.9% 1,000 ML IV SCH ×2 (08:42→21:18)
[2018-08-09] MEDS: BENAZEPRIL 10MG TABLET PO SCH (08:43)
[2018-08-09] MEDS: CYCLOBENZAPRINE 10MG TABLET PO SCH ×2 (08:43→20:43)
[2018-08-09] MEDS: PREDNISONE 20MG TABLET PO SCH (08:43)
[2018-08-09] MEDS: POLYVINYL ALCOHOL OPHTH DROPS 15ML BOTHEYE PRN ×2 (08:53→20:44)
[2018-08-09] MEDS ORDERED: DIPHENHYDRAMINE 50MG/ML VIAL IV SCH (10:30)
[2018-08-09 12:00] VITALS: BP 126/54
[2018-08-09 16:00] VITALS: BP 125/67
[2018-08-09 20:00] VITALS: BP 129/72
[2018-08-09] MEDS: THROAT LOZENGES-BENZOCAINE/MENTH/CETYLPYRD CL LOZENGES MM PRN (20:44)
[2018-08-09] MEDS: ALPRAZOLAM 0.5 MG TABLET PO PRN (20:44)
[2018-08-10] VITALS: BP 120/62
[2018-08-10] MEDS: ALBUTEROL (0.083%) 2.5MG/3ML NEB HHN SCH ×6 (00:05→21:31)
[2018-08-10] MEDS: TEMAZEPAM 15MG CAPSULE PO PRN ×2 (00:30→22:40)
[2018-08-10] MEDS: BENZONATATE 100MG CAPSULE PO SCH ×4 (00:32→22:29)
[2018-08-10 04:00] VITALS: BP 132/55
[2018-08-10] MEDS: THEOPHYLLINE ANHYDROUS 80 MG/15 ML 120ML PO SCH ×3 (05:11→22:30)
[2018-08-10] MEDS: OMEPRAZOLE 20MG CAPSULE EXTENDED RELEASE PO SCH (05:11)
[2018-08-10] MEDS ORDERED: HEPARIN 100 UNITS/1 ML VIAL IVF PRN (06:00)
[2018-08-10 08:00] VITALS: BP 129/62
[2018-08-10] MEDS: AMLODIPINE 2.5MG TABLET PO SCH ×2 (09:00→21:03)
[2018-08-10] MEDS: PREDNISONE 20MG TABLET PO SCH (09:18)
[2018-08-10] MEDS: GUAIFENESIN 600MG ER TABLET PO SCH ×2 (09:18→21:03)
[2018-08-10] MEDS: CYCLOBENZAPRINE 10MG TABLET PO SCH ×2 (09:18→21:03)
[2018-08-10] MEDS: ENOXAPARIN 40MG/0.4ML SYR SUBCUT SCH (09:18)
[2018-08-10] MEDS: MEROPENEM 2,000 MG in SODIUM CHLORIDE 0.9% 100 ML IV SCH ×2 (09:23→21:03)
[2018-08-10] MEDS: BENAZEPRIL 10MG TABLET PO SCH (09:23)
[2018-08-10] MEDS: DIPHENHYDRAMINE 50MG/ML VIAL IV PRN ×2 (09:24→20:45)
[2018-08-10] MEDS: POLYVINYL ALCOHOL OPHTH DROPS 15ML BOTHEYE PRN ×2 (09:33→22:30)
[2018-08-10] MEDS: CLOTRIMAZOLE/BETAMETHASONE 1/0.05% CREAM 15GM TOP SCH ×2 (09:33→21:03)
[2018-08-10] MEDS: THROAT LOZENGES-BENZOCAINE/MENTH/CETYLPYRD CL LOZENGES MM PRN (09:34)
[2018-08-10] MEDS: PROMETHAZINE/DEXTROMETHORPHAN 6.25-15MG/5ML BOTTLE 120ML PO PRN (09:34)
[2018-08-10] MEDS: ALPRAZOLAM 0.5 MG TABLET PO PRN (10:00)
[2018-08-10 12:16] VITALS: BP 125/61
[2018-08-10] MEDS: SODIUM CHLORIDE 0.9% 1,000 ML IV SCH (13:01)
[2018-08-10 16:00] VITALS: BP 103/61
[2018-08-10] MEDS: METHYLPREDNISOLONE SOD SUCC 40 MG/ML VIAL IV SCH ×2 (17:06→22:30)
[2018-08-10 17:52] LABS: HEMATOCRIT. 30.8 % (36.0-48.0); HEMOGLOBIN. 9.8 g/dL (12.0-16.0); MEAN CORPUSCULAR HEMOGLOBIN 27.7 pg (28.0-32.0); MEAN CORPUSCULAR VOLUME 87.6 fL (81.0-99.0); MEAN PLATELET VOLUME 6.4 fl (7.4-10.4); PLATELET 463 x1000/uL (130-400); RED BLOOD CELL COUNT 3.52 mill/uL (4.2-5.4); RED CELL DISTRIBUTION WIDTH 16.1 % (11.6-14.6)
[2018-08-10 17:57] LABS: CHLORIDE 106 mEq/L (98-107)
[2018-08-10 18:04] LABS: THEOPHYLLINE 7.2 ug/mL (10-20)
[2018-08-10 18:12] LABS: PLATELET ESTIMATE INCREASED
[2018-08-10 20:00] VITALS: BP 147/61
[2018-08-11] VITALS: BP 135/63
[2018-08-11] MEDS: ALBUTEROL (0.083%) 2.5MG/3ML NEB HHN SCH ×6 (02:32→20:40)
[2018-08-11 04:00] VITALS: BP 132/87
[2018-08-11] MEDS: THEOPHYLLINE ANHYDROUS 80 MG/15 ML 120ML PO SCH ×3 (05:41→22:34)
[2018-08-11] MEDS: OMEPRAZOLE 20MG CAPSULE EXTENDED RELEASE PO SCH (05:42)
[2018-08-11] MEDS: SODIUM CHLORIDE 0.9% 1,000 ML IV SCH ×2 (05:45→22:41)
[2018-08-11 08:00] VITALS: BP 141/51
[2018-08-11] MEDS: METHYLPREDNISOLONE SOD SUCC 40 MG/ML VIAL IV SCH ×2 (09:13→22:21)
[2018-08-11] MEDS: CYCLOBENZAPRINE 10MG TABLET PO SCH ×2 (09:13→22:21)
[2018-08-11] MEDS: AMLODIPINE 2.5MG TABLET PO SCH ×2 (09:14→22:22)
[2018-08-11] MEDS: GUAIFENESIN 600MG ER TABLET PO SCH ×2 (09:14→22:21)
[2018-08-11] MEDS: BENZONATATE 100MG CAPSULE PO SCH ×2 (09:14→16:55)
[2018-08-11] MEDS: BENAZEPRIL 10MG TABLET PO SCH (09:14)
[2018-08-11] MEDS: POLYVINYL ALCOHOL OPHTH DROPS 15ML BOTHEYE PRN ×2 (09:15→14:57)
[2018-08-11] MEDS: ENOXAPARIN 40MG/0.4ML SYR SUBCUT SCH (09:15)
[2018-08-11] MEDS: CLOTRIMAZOLE/BETAMETHASONE 1/0.05% CREAM 15GM TOP SCH ×2 (09:17→22:21)
[2018-08-11] MEDS: PROMETHAZINE/DEXTROMETHORPHAN 6.25-15MG/5ML BOTTLE 120ML PO PRN (09:19)
[2018-08-11] MEDS: DIPHENHYDRAMINE 50MG/ML VIAL IV PRN ×2 (10:40→22:41)
[2018-08-11] MEDS: MEROPENEM 2,000 MG in SODIUM CHLORIDE 0.9% 100 ML IV SCH ×2 (10:41→22:33)
[2018-08-11] MEDS: ALPRAZOLAM 0.5 MG TABLET PO PRN (11:59)
[2018-08-11 12:00] VITALS: BP 135/56
[2018-08-11 20:00] VITALS: BP 133/61
[2018-08-11] MEDS: TEMAZEPAM 15MG CAPSULE PO PRN (22:33)
[2018-08-12] VITALS: BP 138/61
[2018-08-12] MEDS: ALBUTEROL (0.083%) 2.5MG/3ML NEB HHN SCH ×5 (00:53→21:09)
[2018-08-12] MEDS: BENZONATATE 100MG CAPSULE PO SCH ×3 (01:04→17:09)
[2018-08-12 04:00] VITALS: BP 140/62
[2018-08-12] MEDS: OMEPRAZOLE 20MG CAPSULE EXTENDED RELEASE PO SCH (06:27)
[2018-08-12] MEDS: THEOPHYLLINE ANHYDROUS 80 MG/15 ML 120ML PO SCH ×3 (06:27→21:45)
[2018-08-12 08:00] VITALS: BP 129/59
[2018-08-12 08:04] LABS: HEMATOCRIT. 29.6 % (36.0-48.0); HEMOGLOBIN. 9.3 g/dL (12.0-16.0); MEAN CORPUSCULAR HEMOGLOBIN 27.4 pg (28.0-32.0); MEAN CORPUSCULAR VOLUME 87.3 fL (81.0-99.0); MEAN PLATELET VOLUME 6.6 fl (7.4-10.4); PLATELET 402 x1000/uL (130-400); RED BLOOD CELL COUNT 3.39 mill/uL (4.2-5.4); RED CELL DISTRIBUTION WIDTH 16.2 % (11.6-14.6)
[2018-08-12 08:08] LABS: CHLORIDE 105 mEq/L (98-107)
[2018-08-12 08:17] LABS: PHOSPHORUS 2.5 mg/dL (2.5-4.9)
[2018-08-12] MEDS: METHYLPREDNISOLONE SOD SUCC 40 MG/ML VIAL IV SCH ×2 (08:39→21:41)
[2018-08-12] MEDS: DIPHENHYDRAMINE 50MG/ML VIAL IV PRN ×2 (08:40→21:40)
[2018-08-12] MEDS: MEROPENEM 2,000 MG in SODIUM CHLORIDE 0.9% 100 ML IV SCH ×2 (09:17→21:40)
[2018-08-12] MEDS: CYCLOBENZAPRINE 10MG TABLET PO SCH ×2 (10:33→21:41)
[2018-08-12] MEDS: BENAZEPRIL 10MG TABLET PO SCH (10:35)
[2018-08-12] MEDS: GUAIFENESIN 600MG ER TABLET PO SCH ×2 (10:35→21:41)
[2018-08-12] MEDS: AMLODIPINE 2.5MG TABLET PO SCH ×2 (10:35→22:32)
[2018-08-12] MEDS: ENOXAPARIN 40MG/0.4ML SYR SUBCUT SCH (10:36)
[2018-08-12] MEDS: POLYVINYL ALCOHOL OPHTH DROPS 15ML BOTHEYE PRN (10:36)
[2018-08-12] MEDS: CLOTRIMAZOLE/BETAMETHASONE 1/0.05% CREAM 15GM TOP SCH ×2 (10:37→21:42)
[2018-08-12] MEDS: THROAT LOZENGES-BENZOCAINE/MENTH/CETYLPYRD CL LOZENGES MM PRN (10:37)
[2018-08-12] MEDS: PROMETHAZINE/DEXTROMETHORPHAN 6.25-15MG/5ML BOTTLE 120ML PO PRN (10:38)
[2018-08-12 11:24] LABS: PLATELET ESTIMATE SLIGHTLY INCREASED
[2018-08-12 12:00] VITALS: BP 130/63
[2018-08-12 16:00] VITALS: BP 150/71
[2018-08-12] MEDS: SODIUM CHLORIDE 0.9% 1,000 ML IV SCH ×2 (17:09→17:18)
[2018-08-12 19:41] LABS: HEMATOCRIT. 30.1 % (36.0-48.0); HEMOGLOBIN. 9.5 g/dL (12.0-16.0); MEAN CORPUSCULAR HEMOGLOBIN 27.8 pg (28.0-32.0); MEAN CORPUSCULAR VOLUME 88.5 fL (81.0-99.0); MEAN PLATELET VOLUME 6.4 fl (7.4-10.4); PLATELET 383 x1000/uL (130-400); RED CELL DISTRIBUTION WIDTH 16.2 % (11.6-14.6)
[2018-08-12 20:00] VITALS: BP 140/65
[2018-08-12 20:03] LABS: PLATELET ESTIMATE NORMAL
[2018-08-12] MEDS: TEMAZEPAM 15MG CAPSULE PO PRN (22:38)
[2018-08-13] VITALS: BP 142/70
[2018-08-13] MEDS: ALBUTEROL (0.083%) 2.5MG/3ML NEB HHN SCH ×4 (01:14→13:06)
[2018-08-13 04:00] VITALS: BP 136/65
[2018-08-13] MEDS: THEOPHYLLINE ANHYDROUS 80 MG/15 ML 120ML PO SCH ×2 (06:38→14:40)
[2018-08-13] MEDS: OMEPRAZOLE 20MG CAPSULE EXTENDED RELEASE PO SCH (06:38)
[2018-08-13 08:30] VITALS: BP 143/90
[2018-08-13] MEDS ORDERED: PREDNISONE 20MG TABLET PO SCH (09:00)
[2018-08-13] MEDS: ENOXAPARIN 40MG/0.4ML SYR SUBCUT SCH (10:02)
[2018-08-13] MEDS: AMLODIPINE 2.5MG TABLET PO SCH (10:03)
[2018-08-13] MEDS: CYCLOBENZAPRINE 10MG TABLET PO SCH (10:03)
[2018-08-13] MEDS: BENZONATATE 100MG CAPSULE PO SCH (10:03)
[2018-08-13] MEDS: GUAIFENESIN 600MG ER TABLET PO SCH (10:03)
[2018-08-13] MEDS: BENAZEPRIL 10MG TABLET PO SCH (10:04)
[2018-08-13] MEDS: CLOTRIMAZOLE/BETAMETHASONE 1/0.05% CREAM 15GM TOP SCH (10:04)
[2018-08-13] MEDS: THROAT LOZENGES-BENZOCAINE/MENTH/CETYLPYRD CL LOZENGES MM PRN (10:05)
[2018-08-13] MEDS: PROMETHAZINE/DEXTROMETHORPHAN 6.25-15MG/5ML BOTTLE 120ML PO PRN (10:05)
[2018-08-13] MEDS: POLYVINYL ALCOHOL OPHTH DROPS 15ML BOTHEYE PRN (10:06)
[2018-08-13] MEDS: MEROPENEM 2,000 MG in SODIUM CHLORIDE 0.9% 100 ML IV SCH (10:34)
[2018-08-13] MEDS: DIPHENHYDRAMINE 50MG/ML VIAL IV PRN (10:34)
[2018-08-13 12:00] VITALS: BP 134/68
[2018-08-13 14:16] LABS: HEMATOCRIT. 30.6 % (36.0-48.0); HEMOGLOBIN. 9.6 g/dL (12.0-16.0); MEAN CORPUSCULAR HEMOGLOBIN 27.7 pg (28.0-32.0); MEAN CORPUSCULAR VOLUME 88.3 fL (81.0-99.0); PLATELET 392 x1000/uL (130-400); RED BLOOD CELL COUNT 3.46 mill/uL (4.2-5.4); RED CELL DISTRIBUTION WIDTH 16.5 % (11.6-14.6)
[2018-08-13 14:23] VITALS: BP 134/68
[2018-08-13 15:48] LABS: PLATELET ESTIMATE NORMAL
== END 2018-08-13 15:10 | disposition home or self-care (01) | DRG 177 ==
LOC: ER 13:13 → EDBEDREQ 17:38 → 5WST 17:57 → EDBEDREQ 18:13 → ENRESERV 21:27 → 5WST 08-02 00:48
PROVIDERS: ADMIT Internal Medicine; ATTEND Internal Medicine
PROC: 05H533Z Insertion of Infusion Device into Right Subclavian Vein, Percutaneous Approach (ICD-10-PCS; principal; 2018-08-04)
PROC: B5161ZA Fluoroscopy of Right Subclavian Vein using Low Osmolar Contrast, Guidance (ICD-10-PCS; 2018-08-04)
PROC: B546ZZA Ultrasonography of Right Subclavian Vein, Guidance (ICD-10-PCS; 2018-08-04)
PROC: 02HV33Z Insertion of Infusion Device into Superior Vena Cava, Percutaneous Approach (ICD-10-PCS; 2018-08-10)
PROC: B5181ZA Fluoroscopy of Superior Vena Cava using Low Osmolar Contrast, Guidance (ICD-10-PCS; 2018-08-10)
PROC: B5181ZA Fluoroscopy of Superior Vena Cava using Low Osmolar Contrast, Guidance (ICD-10-PCS; 2018-08-10)
DX: J15.1 Pneumonia due to Pseudomonas (principal); E43 Unspecified severe protein-calorie malnutrition; J96.00 Acute respiratory failure, unspecified whether with hypoxia or hypercapnia; J44.1 Chronic obstructive pulmonary disease with (acute) exacerbation; D50.9 Iron deficiency anemia, unspecified; R31.9 Hematuria, unspecified; I48.0 Paroxysmal atrial fibrillation; E78.5 Hyperlipidemia, unspecified; E78.00 Pure hypercholesterolemia, unspecified; I25.10 Atherosclerotic heart disease of native coronary artery without angina pectoris; I27.20 Pulmonary hypertension, unspecified; I48.2 Chronic atrial fibrillation; J43.9 Emphysema, unspecified; T38.0X5A Adverse effect of glucocorticoids and synthetic analogues, initial encounter; N18.2 Chronic kidney disease, stage 2 (mild); F41.9 Anxiety disorder, unspecified; I13.10 Hypertensive heart and chronic kidney disease without heart failure, with stage 1 through stage 4 chronic kidney disease, or unspecified chronic kidney disease; Z88.0 Allergy status to penicillin; Z88.2 Allergy status to sulfonamides; Z82.49 Family history of ischemic heart disease and other diseases of the circulatory system; Z88.6 Allergy status to analgesic agent; Z88.1 Allergy status to other antibiotic agents; Z88.9 Allergy status to unspecified drugs, medicaments and biological substances; Y92.89 Other specified places as the place of occurrence of the external cause; Z68.23 Body mass index [BMI] 23.0-23.9, adult
CPT/HCPCS: 36415; 36569; 36573; 71045; 71046; 80048; 80061; 80150; 80198; 80305; 82040; 82270; 82550; 82553; 82607; 83540; 83550; 83605; 83735; 83880; 84100; 84134; 84484; 85044; 85651; 87070; 87077; 87186; 93005; 93970; 94640; 96374; 97162; 97165; 99285; C1725; J0278; J0456; J1200; J1642; J1650; J2185; J2920; J7030; J7050; J7060; J7512; J7611; J7620; Q0163

== ENCOUNTER 2019-01-26 22:52 | Inpatient (IN) | payer MEDICARE ==
[~2019-01-26] VITALS: Ht 167.6 cm; Wt 59.4 kg
[~2019-01-26 22:52] MED LIST changes: -OMEP20CA10 PO; +OMEP20CA5 PO
[2019-01-27] MEDS ORDERED: METHYLPREDNISOLONE SOD SUCC 125 MG/2 ML VIAL IV STA (00:47)
[2019-01-27] MEDS ORDERED: ALBUTEROL (0.083%) 2.5MG/3ML NEB HHN STA (00:47)
[2019-01-27] MEDS ORDERED: IPRATROPIUM BROMIDE (0.02%) 0.5MG/2.5ML NEB HHN STA (00:47)
[2019-01-27] MEDS ORDERED: MAGNESIUM 2 G PREMIX 50 ML IV ONE (01:00)
[2019-01-27 01:59] LABS: EOSINOPHILS % 0.1 % (0.0-5.0); HEMATOCRIT. 35.3 % (36.0-48.0); HEMOGLOBIN. 11.3 g/dL (12.0-16.0); LYMPHOCYTES % 12.8 % (20.0-50.0); MEAN CORPUSCULAR HEMOGLOBIN 28.2 pg (28.0-32.0); MEAN CORPUSCULAR VOLUME 87.7 fL (81.0-99.0); MEAN PLATELET VOLUME 7.7 fl (7.4-10.4); MONOCYTES % 9.8 % (2.0-8.0); NEUTROPHILS % 76.3 % (40.0-76.0); PLATELET 280 x1000/uL (130-400); RED BLOOD CELL COUNT 4.03 mill/uL (4.2-5.4); RED CELL DISTRIBUTION WIDTH 15.2 % (11.6-14.6)
[2019-01-27 02:05] LABS: CHLORIDE 109 mEq/L (98-107)
[2019-01-27 08:50] VITALS: BP 176/72
[2019-01-27] MEDS ORDERED: HYPROMELLOSE OP SCH (10:45)
[2019-01-27] MEDS ORDERED: MEDICATION NOT ON FORMULARY EA (Benazepril Hcl 20 MG) PO SCH (10:45)
[2019-01-27] MEDS ORDERED: THEOPHYLLINE ANHYDROUS 200 MG PO SCH (10:45)
[2019-01-27] MEDS ORDERED: LEVALBUTEROL HCL 1.25 MG IH PRN (10:45)
[2019-01-27] MEDS ORDERED: TRAMADOL 50MG TABLET PO PRN (10:45)
[2019-01-27] MEDS ORDERED: DEXTRAN OP SCH (10:45)
[2019-01-27] MEDS ORDERED: ACETAMINOPHEN 325MG TABLET PO PRN (11:00)
[2019-01-27 12:00] VITALS: BP 160/70
[2019-01-27] MEDS: OMEPRAZOLE 20MG CAPSULE EXTENDED RELEASE PO SCH (13:28)
[2019-01-27] MEDS: METHYLPREDNISOLONE SOD SUCC 40 MG/ML VIAL IV SCH ×2 (13:29→22:32)
[2019-01-27] MEDS ORDERED: NON FORMULARY PATIENT HOME MED XX SCH (14:00)
[2019-01-27] MEDS ORDERED: BENAZEPRIL 5MG TABLET PO SCH (14:00)
[2019-01-27 16:00] VITALS: BP 150/55
[2019-01-27] MEDS ORDERED: TEMAZEPAM 15MG CAPSULE PO PRN (16:15)
[2019-01-27] MEDS ORDERED: ALBUTEROL (0.083%) 2.5MG/3ML NEB HHN PRN (16:30)
[2019-01-27] MEDS ORDERED: TEMAZEPAM 30 MG PO SCH (17:00)
[2019-01-27] MEDS: ALBUTEROL (0.083%) 2.5MG/3ML NEB HHN PRN ×2 (17:36→22:14)
[2019-01-27] MEDS ORDERED: BENAZEPRIL 10MG TABLET PO NR (18:01)
[2019-01-27] MEDS: ENOXAPARIN 40MG/0.4ML SYR SUBCUT SCH (18:25)
[2019-01-27] MEDS: THEOPHYLLINE ANHYDROUS 80 MG/15 ML 120ML PO SCH (18:25)
[2019-01-27] MEDS: POLYVINYL ALCOHOL OPHTH DROPS 15ML BOTHEYE SCH (18:26)
[2019-01-27 20:00] VITALS: BP 131/61
[2019-01-27] MEDS ORDERED: ATORVASTATIN CALCIUM 20 MG PO SCH (20:00)
[2019-01-27] MEDS: DIPHENHYDRAMINE 50MG CAPSULE PO PRN (22:31)
[2019-01-27] MEDS: AMOXICILLIN/POTASSIUM CLAVULANATE 875/125MG TAB PO SCH (22:32)
[2019-01-27] MEDS: ATORVASTATIN CALCIUM 20MG TABLET PO SCH (22:33)
[2019-01-27] MEDS: TEMAZEPAM 15MG CAPSULE PO PRN (22:34)
[2019-01-27] MEDS: ALPRAZOLAM 0.5 MG TABLET PO PRN (22:46)
[2019-01-28] VITALS: BP 127/53
[2019-01-28] MEDS: ALBUTEROL (0.083%) 2.5MG/3ML NEB HHN PRN ×2 (01:21→04:35)
[2019-01-28 04:00] VITALS: BP 124/51
[2019-01-28] MEDS: ALBUTEROL (0.083%) 2.5MG/3ML NEB HHN SCH ×5 (07:55→23:53)
[2019-01-28 08:00] VITALS: BP 141/73
[2019-01-28] MEDS: OMEPRAZOLE 20MG CAPSULE EXTENDED RELEASE PO SCH (08:55)
[2019-01-28] MEDS: BENAZEPRIL 10MG TABLET PO SCH (08:55)
[2019-01-28] MEDS: AMOXICILLIN/POTASSIUM CLAVULANATE 875/125MG TAB PO SCH ×2 (08:55→21:04)
[2019-01-28] MEDS: POLYVINYL ALCOHOL OPHTH DROPS 15ML BOTHEYE SCH ×3 (08:56→17:29)
[2019-01-28] MEDS: THEOPHYLLINE ANHYDROUS 80 MG/15 ML 120ML PO SCH ×2 (08:56→17:29)
[2019-01-28] MEDS: FLUTICASONE PROPIONATE 50MCG/SPRAY BOTTLE BOTHNSTRLS SCH (11:42)
[2019-01-28] MEDS: PROMETHAZINE/DEXTROMETHORPHAN 6.25-15MG/5ML BOTTLE 120ML PO PRN (11:43)
[2019-01-28 12:00] VITALS: BP 147/71
[2019-01-28] MEDS: ALPRAZOLAM 0.5 MG TABLET PO PRN ×2 (12:00→21:04)
[2019-01-28] MEDS: METHYLPREDNISOLONE SOD SUCC 40 MG/ML VIAL IV SCH ×2 (13:00→21:08)
[2019-01-28 16:00] VITALS: BP 129/56
[2019-01-28] MEDS: ENOXAPARIN 40MG/0.4ML SYR SUBCUT SCH (17:30)
[2019-01-28 20:00] VITALS: BP 122/68
[2019-01-28] MEDS: ATORVASTATIN CALCIUM 20MG TABLET PO SCH (21:04)
[2019-01-28] MEDS: DIPHENHYDRAMINE 50MG CAPSULE PO PRN (21:08)
[2019-01-28] MEDS: TEMAZEPAM 15MG CAPSULE PO PRN (21:34)
[2019-01-29] VITALS: BP 123/64
[2019-01-29] MEDS: ALBUTEROL (0.083%) 2.5MG/3ML NEB HHN SCH ×6 (02:19→20:54)
[2019-01-29 04:00] VITALS: BP 115/64
[2019-01-29] MEDS: METHYLPREDNISOLONE SOD SUCC 40 MG/ML VIAL IV SCH ×3 (05:51→21:02)
[2019-01-29] MEDS: FAMOTIDINE 20MG TABLET PO SCH (09:05)
[2019-01-29] MEDS: DIPHENHYDRAMINE 50MG CAPSULE PO PRN ×2 (09:05→21:01)
[2019-01-29] MEDS: AMOXICILLIN/POTASSIUM CLAVULANATE 875/125MG TAB PO SCH ×2 (09:05→21:21)
[2019-01-29] MEDS: BENAZEPRIL 10MG TABLET PO SCH (09:06)
[2019-01-29] MEDS: POLYVINYL ALCOHOL OPHTH DROPS 15ML BOTHEYE SCH ×3 (09:07→18:11)
[2019-01-29] MEDS: PROMETHAZINE/DEXTROMETHORPHAN 6.25-15MG/5ML BOTTLE 120ML PO PRN (09:08)
[2019-01-29] MEDS: THEOPHYLLINE ANHYDROUS 80 MG/15 ML 120ML PO SCH ×2 (09:08→18:10)
[2019-01-29 12:00] VITALS: BP 137/60
[2019-01-29] MEDS: LACTOBACILLUS GG CAPSULE PO SCH (13:40)
[2019-01-29] MEDS: FLUTICASONE PROPIONATE 50MCG/SPRAY BOTTLE BOTHNSTRLS SCH (14:45)
[2019-01-29] MEDS: ALPRAZOLAM 0.5 MG TABLET PO PRN ×2 (14:48→21:01)
[2019-01-29 16:00] VITALS: BP 133/59
[2019-01-29 16:28] LABS: HEMATOCRIT. 36.2 % (36.0-48.0); HEMOGLOBIN. 11.6 g/dL (12.0-16.0); MEAN CORPUSCULAR HEMOGLOBIN 27.9 pg (28.0-32.0); MEAN CORPUSCULAR VOLUME 87.1 fL (81.0-99.0); MEAN PLATELET VOLUME 7.5 fl (7.4-10.4); PLATELET 284 x1000/uL (130-400); RED BLOOD CELL COUNT 4.15 mill/uL (4.2-5.4)
[2019-01-29 16:38] LABS: CHLORIDE 106 mEq/L (98-107)
[2019-01-29 16:45] LABS: PHOSPHORUS 3.3 mg/dL (2.5-4.9)
[2019-01-29 16:49] LABS: THEOPHYLLINE 6.4 ug/mL (10-20)
[2019-01-29 17:17] LABS: PLATELET ESTIMATE NORMAL
[2019-01-29] MEDS: ENOXAPARIN 40MG/0.4ML SYR SUBCUT SCH (18:12)
[2019-01-29 20:00] VITALS: BP 147/74
[2019-01-29] MEDS: ATORVASTATIN CALCIUM 40MG TABLET PO SCH (21:01)
[2019-01-29] MEDS: TEMAZEPAM 15MG CAPSULE PO PRN (21:21)
[2019-01-30] MEDS: ALBUTEROL (0.083%) 2.5MG/3ML NEB HHN SCH ×10 (00:19→23:40)
[2019-01-30 04:00] VITALS: BP 125/62
[2019-01-30] MEDS: METHYLPREDNISOLONE SOD SUCC 40 MG/ML VIAL IV SCH ×3 (06:01→20:54)
[2019-01-30 07:11] LABS: HEMATOCRIT. 33.9 % (36.0-48.0); HEMOGLOBIN. 10.9 g/dL (12.0-16.0); MEAN CORPUSCULAR HEMOGLOBIN 28.2 pg (28.0-32.0); MEAN CORPUSCULAR VOLUME 87.5 fL (81.0-99.0); MEAN PLATELET VOLUME 7.8 fl (7.4-10.4); PLATELET 260 x1000/uL (130-400); RED BLOOD CELL COUNT 3.87 mill/uL (4.2-5.4); RED CELL DISTRIBUTION WIDTH 14.8 % (11.6-14.6)
[2019-01-30 07:20] LABS: CHLORIDE 103 mEq/L (98-107)
[2019-01-30 08:00] VITALS: BP 140/74
[2019-01-30] MEDS: FAMOTIDINE 20MG TABLET PO SCH (08:47)
[2019-01-30] MEDS: AMOXICILLIN/POTASSIUM CLAVULANATE 875/125MG TAB PO SCH ×2 (09:07→20:52)
[2019-01-30] MEDS: POLYVINYL ALCOHOL OPHTH DROPS 15ML BOTHEYE SCH ×3 (09:08→17:11)
[2019-01-30] MEDS: BENAZEPRIL 10MG TABLET PO SCH (09:08)
[2019-01-30] MEDS: LACTOBACILLUS GG CAPSULE PO SCH (09:08)
[2019-01-30] MEDS: DIPHENHYDRAMINE 50MG CAPSULE PO PRN ×2 (09:15→20:30)
[2019-01-30] MEDS: THEOPHYLLINE ANHYDROUS 80 MG/15 ML 120ML PO SCH ×2 (09:19→17:12)
[2019-01-30 12:00] VITALS: BP 129/71
[2019-01-30 12:28] LABS: NUCLEATED RED BLOOD CELLS 1 /100 WBC; PLATELET ESTIMATE NORMAL
[2019-01-30] MEDS: FLUTICASONE PROPIONATE 50MCG/SPRAY BOTTLE BOTHNSTRLS SCH ×2 (13:43→20:53)
[2019-01-30 16:00] VITALS: BP 112/67
[2019-01-30] MEDS: PROMETHAZINE/DEXTROMETHORPHAN 6.25-15MG/5ML BOTTLE 120ML PO PRN (17:12)
[2019-01-30] MEDS: ENOXAPARIN 40MG/0.4ML SYR SUBCUT SCH (17:13)
[2019-01-30 20:00] VITALS: BP 112/54
[2019-01-30] MEDS: ATORVASTATIN CALCIUM 40MG TABLET PO SCH (20:52)
[2019-01-30] MEDS: ALPRAZOLAM 0.5 MG TABLET PO PRN (21:53)
[2019-01-30] MEDS: TEMAZEPAM 15MG CAPSULE PO PRN (21:54)
[2019-01-30 23:51] VITALS: BP 123/58
[2019-01-31] MEDS: ALBUTEROL (0.083%) 2.5MG/3ML NEB HHN SCH ×6 (04:05→21:15)
[2019-01-31 04:10] VITALS: BP 126/72
[2019-01-31] MEDS: METHYLPREDNISOLONE SOD SUCC 40 MG/ML VIAL IV SCH ×3 (04:56→20:21)
[2019-01-31 08:00] VITALS: BP 154/83
[2019-01-31] MEDS: THEOPHYLLINE ANHYDROUS 80 MG/15 ML 120ML PO SCH ×2 (08:35→16:54)
[2019-01-31] MEDS: LACTOBACILLUS GG CAPSULE PO SCH (08:35)
[2019-01-31] MEDS: AMOXICILLIN/POTASSIUM CLAVULANATE 875/125MG TAB PO SCH ×2 (08:35→21:16)
[2019-01-31] MEDS: DIPHENHYDRAMINE 50MG CAPSULE PO PRN ×2 (08:35→20:29)
[2019-01-31] MEDS: FAMOTIDINE 20MG TABLET PO SCH (08:35)
[2019-01-31] MEDS: POLYVINYL ALCOHOL OPHTH DROPS 15ML BOTHEYE SCH ×3 (08:36→16:54)
[2019-01-31] MEDS: BENAZEPRIL 10MG TABLET PO SCH (11:03)
[2019-01-31] MEDS: PROMETHAZINE/DEXTROMETHORPHAN 6.25-15MG/5ML BOTTLE 120ML PO PRN (11:04)
[2019-01-31] MEDS: ALPRAZOLAM 0.5 MG TABLET PO PRN ×2 (15:52→21:33)
[2019-01-31 16:26] VITALS: BP 104/71
[2019-01-31] MEDS: ENOXAPARIN 40MG/0.4ML SYR SUBCUT SCH (16:54)
[2019-01-31] MEDS: GUAIFENESIN 200MG TABLET PO PRN (16:55)
[2019-01-31] MEDS: ATORVASTATIN CALCIUM 40MG TABLET PO SCH (21:16)
[2019-01-31] MEDS: TEMAZEPAM 15MG CAPSULE PO PRN (21:33)
[2019-02-01] VITALS: BP 119/49
[2019-02-01] MEDS: ALBUTEROL (0.083%) 2.5MG/3ML NEB HHN SCH ×9 (00:08→23:55)
[2019-02-01 04:00] VITALS: BP 143/63
[2019-02-01] MEDS: METHYLPREDNISOLONE SOD SUCC 40 MG/ML VIAL IV SCH ×3 (05:21→21:00)
[2019-02-01 07:21] LABS: HEMATOCRIT. 34.1 % (36.0-48.0); HEMOGLOBIN. 10.9 g/dL (12.0-16.0); MEAN CORPUSCULAR VOLUME 87.8 fL (81.0-99.0); MEAN PLATELET VOLUME 7.6 fl (7.4-10.4); PLATELET 255 x1000/uL (130-400); RED BLOOD CELL COUNT 3.88 mill/uL (4.2-5.4); RED CELL DISTRIBUTION WIDTH 15.1 % (11.6-14.6)
[2019-02-01 07:34] LABS: CHLORIDE 103 mEq/L (98-107)
[2019-02-01 07:47] LABS: PHOSPHORUS 3.9 mg/dL (2.5-4.9); THEOPHYLLINE 7.1 ug/mL (10-20)
[2019-02-01 08:00] VITALS: BP 166/86
[2019-02-01] MEDS: LACTOBACILLUS GG CAPSULE PO SCH (08:46)
[2019-02-01] MEDS: DIPHENHYDRAMINE 50MG CAPSULE PO PRN (08:46)
[2019-02-01] MEDS: FAMOTIDINE 20MG TABLET PO SCH (08:46)
[2019-02-01] MEDS: THEOPHYLLINE ANHYDROUS 80 MG/15 ML 120ML PO SCH ×2 (08:48→17:14)
[2019-02-01] MEDS: PROMETHAZINE/DEXTROMETHORPHAN 6.25-15MG/5ML BOTTLE 120ML PO PRN (08:50)
[2019-02-01] MEDS: POLYVINYL ALCOHOL OPHTH DROPS 15ML BOTHEYE SCH ×3 (08:51→17:14)
[2019-02-01] MEDS: AMOXICILLIN/POTASSIUM CLAVULANATE 875/125MG TAB PO SCH ×2 (08:51→21:00)
[2019-02-01] MEDS: BENAZEPRIL 10MG TABLET PO SCH (09:00)
[2019-02-01 12:00] VITALS: BP 143/63
[2019-02-01] MEDS: GUAIFENESIN 200MG TABLET PO PRN (14:15)
[2019-02-01 16:00] VITALS: BP 133/65
[2019-02-01] MEDS ORDERED: DIPHENHYDRAMINE 50MG/ML VIAL IV NR (17:00)
[2019-02-01] MEDS: ENOXAPARIN 40MG/0.4ML SYR SUBCUT SCH (17:17)
[2019-02-01] MEDS: PIPERACILLIN/TAZOBACTAM 2.25 G in DEXTROSE 5% WATER 50 ML IV SCH ×2 (17:39→21:00)
[2019-02-01 20:00] VITALS: BP 158/106
[2019-02-01 20:15] LABS: T4 FREE 0.69 ng/dL (0.76-1.46)
[2019-02-01] MEDS: ATORVASTATIN CALCIUM 40MG TABLET PO SCH (21:00)
[2019-02-01 21:26] LABS: PLATELET ESTIMATE NORMAL
[2019-02-01] MEDS: DIPHENHYDRAMINE 50MG/ML VIAL IV SCH (22:11)
[2019-02-01] MEDS: ALPRAZOLAM 0.5 MG TABLET PO PRN (22:40)
[2019-02-02] VITALS: BP 132/74
[2019-02-02] MEDS: DIPHENHYDRAMINE 50MG/ML VIAL IV SCH ×4 (02:43→20:59)
[2019-02-02] MEDS: ALBUTEROL (0.083%) 2.5MG/3ML NEB HHN SCH ×6 (02:56→21:53)
[2019-02-02] MEDS: PIPERACILLIN/TAZOBACTAM 2.25 G in DEXTROSE 5% WATER 50 ML IV SCH ×4 (03:04→21:10)
[2019-02-02] MEDS: METHYLPREDNISOLONE SOD SUCC 40 MG/ML VIAL IV SCH ×3 (04:29→21:10)
[2019-02-02 07:02] LABS: HEMATOCRIT. 34.3 % (36.0-48.0); MEAN CORPUSCULAR HEMOGLOBIN 28.2 pg (28.0-32.0); MEAN CORPUSCULAR VOLUME 88.2 fL (81.0-99.0); MEAN PLATELET VOLUME 7.7 fl (7.4-10.4); PLATELET 253 x1000/uL (130-400); RED BLOOD CELL COUNT 3.89 mill/uL (4.2-5.4); RED CELL DISTRIBUTION WIDTH 15.1 % (11.6-14.6)
[2019-02-02 07:09] LABS: CHLORIDE 103 mEq/L (98-107)
[2019-02-02 07:27] LABS: T4 FREE 0.68 ng/dL (0.76-1.46)
[2019-02-02] MEDS: THEOPHYLLINE ANHYDROUS 80 MG/15 ML 120ML PO SCH ×2 (08:14→16:27)
[2019-02-02] MEDS: POLYVINYL ALCOHOL OPHTH DROPS 15ML BOTHEYE SCH ×3 (08:14→16:27)
[2019-02-02] MEDS: LACTOBACILLUS GG CAPSULE PO SCH (08:15)
[2019-02-02] MEDS: FAMOTIDINE 20MG TABLET PO SCH (08:15)
[2019-02-02] MEDS: BENAZEPRIL 10MG TABLET PO SCH (08:15)
[2019-02-02] MEDS ORDERED: LIDOCAINE HCL 1% 20ML VIAL (Pyxis) INJ ONE (09:22)
[2019-02-02] MEDS: DIPHENHYDRAMINE 50MG CAPSULE PO PRN (10:58)
[2019-02-02] MEDS: SODIUM CHLORIDE 0.45% 1,000 ML IV SCH (10:59)
[2019-02-02] MEDS: ARFORMOTEROL TARTRATE 15MCG/2ML NEB NEB SCH ×2 (11:45→21:53)
[2019-02-02 12:00] VITALS: BP 130/61
[2019-02-02 16:00] VITALS: BP 113/71
[2019-02-02] MEDS: ENOXAPARIN 40MG/0.4ML SYR SUBCUT SCH (16:27)
[2019-02-02 17:08] LABS: PLATELET ESTIMATE NORMAL
[2019-02-02 20:00] VITALS: BP 136/71
[2019-02-02] MEDS: PROMETHAZINE/DEXTROMETHORPHAN 6.25-15MG/5ML BOTTLE 120ML PO PRN (21:09)
[2019-02-02] MEDS: ATORVASTATIN CALCIUM 40MG TABLET PO SCH (21:10)
[2019-02-02] MEDS: TEMAZEPAM 15MG CAPSULE PO PRN (23:44)
[2019-02-03] VITALS: BP 154/73
[2019-02-03] MEDS: ALBUTEROL (0.083%) 2.5MG/3ML NEB HHN SCH ×9 (00:02→23:13)
[2019-02-03] MEDS: SODIUM CHLORIDE 0.45% 1,000 ML IV SCH ×3 (00:20→23:12)
[2019-02-03] MEDS: DIPHENHYDRAMINE 50MG/ML VIAL IV SCH ×4 (02:46→21:13)
[2019-02-03] MEDS: PIPERACILLIN/TAZOBACTAM 2.25 G in DEXTROSE 5% WATER 50 ML IV SCH ×4 (02:50→21:33)
[2019-02-03 04:00] VITALS: BP 146/64
[2019-02-03] MEDS: METHYLPREDNISOLONE SOD SUCC 40 MG/ML VIAL IV SCH ×3 (06:08→21:33)
[2019-02-03 08:00] VITALS: BP 167/92
[2019-02-03] MEDS: ARFORMOTEROL TARTRATE 15MCG/2ML NEB NEB SCH ×2 (08:22→23:13)
[2019-02-03] MEDS: POLYVINYL ALCOHOL OPHTH DROPS 15ML BOTHEYE SCH ×3 (09:12→16:51)
[2019-02-03] MEDS: FAMOTIDINE 20MG TABLET PO SCH (09:12)
[2019-02-03] MEDS: BENAZEPRIL 10MG TABLET PO SCH (09:12)
[2019-02-03] MEDS: LACTOBACILLUS GG CAPSULE PO SCH (09:12)
[2019-02-03] MEDS: THEOPHYLLINE ANHYDROUS 80 MG/15 ML 120ML PO SCH ×2 (09:13→16:50)
[2019-02-03] MEDS: GUAIFENESIN 200MG TABLET PO PRN (09:30)
[2019-02-03 12:00] VITALS: BP 168/72
[2019-02-03 16:00] VITALS: BP 172/80
[2019-02-03] MEDS: CLONIDINE 0.1MG TABLET PO PRN (16:50)
[2019-02-03] MEDS ORDERED: CYCLOBENZAPRINE 10MG TABLET PO NR (18:19)
[2019-02-03] MEDS: ENOXAPARIN 40MG/0.4ML SYR SUBCUT SCH (18:40)
[2019-02-03] MEDS ORDERED: DIPHENHYDRAMINE 50MG CAPSULE PO PRN (18:45)
[2019-02-03] MEDS: DIPHENHYDRAMINE 50MG/ML VIAL IV PRN (18:59)
[2019-02-03 20:00] VITALS: BP 137/64
[2019-02-03] MEDS: ATORVASTATIN CALCIUM 40MG TABLET PO SCH (21:33)
[2019-02-03] MEDS: TEMAZEPAM 15MG CAPSULE PO PRN (21:33)
[2019-02-03] MEDS: DIPHENHYDRAMINE 50MG CAPSULE PO PRN (23:36)
[2019-02-04] VITALS: BP 118/73
[2019-02-04] MEDS: DIPHENHYDRAMINE 50MG/ML VIAL IV SCH ×5 (02:49→20:05)
[2019-02-04] MEDS: PIPERACILLIN/TAZOBACTAM 2.25 G in DEXTROSE 5% WATER 50 ML IV SCH ×4 (03:01→20:04)
[2019-02-04 04:00] VITALS: BP 151/80
[2019-02-04] MEDS: ALBUTEROL (0.083%) 2.5MG/3ML NEB HHN SCH ×7 (04:08→22:06)
[2019-02-04] MEDS: METHYLPREDNISOLONE SOD SUCC 40 MG/ML VIAL IV SCH ×3 (05:06→20:05)
[2019-02-04 07:32] LABS: HEMATOCRIT. 37.1 % (36.0-48.0); HEMOGLOBIN. 11.9 g/dL (12.0-16.0); MEAN CORPUSCULAR HEMOGLOBIN 28.2 pg (28.0-32.0); MEAN CORPUSCULAR VOLUME 88.3 fL (81.0-99.0); MEAN PLATELET VOLUME 7.7 fl (7.4-10.4); PLATELET 58 x1000/uL (130-400); RED CELL DISTRIBUTION WIDTH 15.3 % (11.6-14.6)
[2019-02-04 07:45] LABS: CHLORIDE 104 mEq/L (98-107)
[2019-02-04 07:49] LABS: PHOSPHORUS 3.3 mg/dL (2.5-4.9); THEOPHYLLINE 7.8 ug/mL (10-20)
[2019-02-04 08:00] VITALS: BP 149/77
[2019-02-04] MEDS: ARFORMOTEROL TARTRATE 15MCG/2ML NEB NEB SCH ×2 (10:04→22:06)
[2019-02-04] MEDS: THEOPHYLLINE ANHYDROUS 80 MG/15 ML 120ML PO SCH ×2 (10:08→17:05)
[2019-02-04] MEDS: FAMOTIDINE 20MG TABLET PO SCH (10:09)
[2019-02-04] MEDS: CYCLOBENZAPRINE 10MG TABLET PO SCH (10:09)
[2019-02-04] MEDS: POLYVINYL ALCOHOL OPHTH DROPS 15ML BOTHEYE SCH ×3 (10:10→17:06)
[2019-02-04] MEDS: LACTOBACILLUS GG CAPSULE PO SCH (10:10)
[2019-02-04] MEDS: GUAIFENESIN 200MG TABLET PO PRN (10:14)
[2019-02-04 11:30] LABS: PLATELET ESTIMATE DECREASED
[2019-02-04 12:00] VITALS: BP 171/82
[2019-02-04] MEDS: BENAZEPRIL 10MG TABLET PO SCH (14:48)
[2019-02-04 16:51] VITALS: BP 150/74
[2019-02-04] MEDS: SODIUM CHLORIDE 0.45% 1,000 ML IV SCH (17:05)
[2019-02-04] MEDS: DIPHENHYDRAMINE 50MG/ML VIAL IV PRN (17:07)
[2019-02-04 20:00] VITALS: BP 178/92
[2019-02-04] MEDS: FLUTICASONE PROPIONATE 50MCG/SPRAY BOTTLE BOTHNSTRLS SCH (20:04)
[2019-02-04] MEDS: ATORVASTATIN CALCIUM 40MG TABLET PO SCH (20:05)
[2019-02-04] MEDS: CLONIDINE 0.1MG TABLET PO PRN (20:05)
[2019-02-04] MEDS: TEMAZEPAM 15MG CAPSULE PO PRN (20:12)
[2019-02-05] VITALS: BP 131/69
[2019-02-05] MEDS: ALBUTEROL (0.083%) 2.5MG/3ML NEB HHN SCH ×8 (01:06→23:40)
[2019-02-05] MEDS: PIPERACILLIN/TAZOBACTAM 2.25 G in DEXTROSE 5% WATER 50 ML IV SCH ×4 (02:26→22:13)
[2019-02-05] MEDS: DIPHENHYDRAMINE 50MG/ML VIAL IV SCH ×4 (02:26→22:12)
[2019-02-05 04:00] VITALS: BP 163/68
[2019-02-05] MEDS: CLONIDINE 0.1MG TABLET PO PRN (06:20)
[2019-02-05] MEDS: METHYLPREDNISOLONE SOD SUCC 40 MG/ML VIAL IV SCH ×3 (06:21→22:11)
[2019-02-05] MEDS: OMEPRAZOLE 20MG CAPSULE EXTENDED RELEASE PO SCH ×2 (06:21→22:12)
[2019-02-05 06:44] LABS: HEMATOCRIT. 34.1 % (36.0-48.0); HEMOGLOBIN. 10.9 g/dL (12.0-16.0); MEAN CORPUSCULAR HEMOGLOBIN 28.2 pg (28.0-32.0); MEAN CORPUSCULAR VOLUME 87.9 fL (81.0-99.0); MEAN PLATELET VOLUME 7.5 fl (7.4-10.4); PLATELET 208 x1000/uL (130-400); RED BLOOD CELL COUNT 3.88 mill/uL (4.2-5.4); RED CELL DISTRIBUTION WIDTH 15.3 % (11.6-14.6)
[2019-02-05 08:00] VITALS: BP 142/77
[2019-02-05 08:31] LABS: CHLORIDE 105 mEq/L (98-107)
[2019-02-05 09:32] LABS: PLATELET ESTIMATE NORMAL
[2019-02-05] MEDS: ARFORMOTEROL TARTRATE 15MCG/2ML NEB NEB SCH ×2 (10:02→20:41)
[2019-02-05] MEDS: CYCLOBENZAPRINE 10MG TABLET PO SCH (10:12)
[2019-02-05] MEDS: FAMOTIDINE 20MG TABLET PO SCH (10:12)
[2019-02-05] MEDS: POLYVINYL ALCOHOL OPHTH DROPS 15ML BOTHEYE SCH ×3 (10:13→17:35)
[2019-02-05] MEDS: THEOPHYLLINE ANHYDROUS 80 MG/15 ML 120ML PO SCH ×2 (10:13→17:34)
[2019-02-05] MEDS: FLUTICASONE PROPIONATE 50MCG/SPRAY BOTTLE BOTHNSTRLS SCH (10:13)
[2019-02-05] MEDS: LACTOBACILLUS GG CAPSULE PO SCH (10:25)
[2019-02-05] MEDS: BENAZEPRIL 10MG TABLET PO SCH (14:03)
[2019-02-05] MEDS ORDERED: METHYLPREDNISOLONE SOD SUCC 40 MG/ML VIAL IV SCH (15:15)
[2019-02-05] MEDS: ENOXAPARIN 40MG/0.4ML SYR SUBCUT SCH (17:35)
[2019-02-05 20:00] VITALS: BP 129/87
[2019-02-05] MEDS: SODIUM CHLORIDE 0.45% 1,000 ML IV SCH (22:11)
[2019-02-05] MEDS: ATORVASTATIN CALCIUM 40MG TABLET PO SCH (22:12)
[2019-02-05] MEDS: TEMAZEPAM 15MG CAPSULE PO PRN (22:13)
[2019-02-06] VITALS: BP 142/67
[2019-02-06] MEDS: SODIUM CHLORIDE 0.45% 1,000 ML IV SCH ×3 (01:21→21:30)
[2019-02-06] MEDS: ALBUTEROL (0.083%) 2.5MG/3ML NEB HHN SCH ×8 (02:42→23:31)
[2019-02-06] MEDS: DIPHENHYDRAMINE 50MG/ML VIAL IV SCH ×4 (03:42→21:30)
[2019-02-06] MEDS: PIPERACILLIN/TAZOBACTAM 2.25 G in DEXTROSE 5% WATER 50 ML IV SCH ×4 (03:43→21:30)
[2019-02-06 04:00] VITALS: BP 151/66
[2019-02-06] MEDS: METHYLPREDNISOLONE SOD SUCC 40 MG/ML VIAL IV SCH ×3 (06:04→21:29)
[2019-02-06] MEDS: OMEPRAZOLE 20MG CAPSULE EXTENDED RELEASE PO SCH ×2 (06:04→21:29)
[2019-02-06] MEDS: ARFORMOTEROL TARTRATE 15MCG/2ML NEB NEB SCH ×2 (08:22→19:59)
[2019-02-06] MEDS: POLYVINYL ALCOHOL OPHTH DROPS 15ML BOTHEYE SCH ×3 (09:09→17:49)
[2019-02-06] MEDS: FLUTICASONE PROPIONATE 50MCG/SPRAY BOTTLE BOTHNSTRLS SCH (09:10)
[2019-02-06] MEDS: THEOPHYLLINE ANHYDROUS 80 MG/15 ML 120ML PO SCH ×2 (09:11→17:50)
[2019-02-06] MEDS: LACTOBACILLUS GG CAPSULE PO SCH (09:11)
[2019-02-06] MEDS: CYCLOBENZAPRINE 10MG TABLET PO SCH (09:12)
[2019-02-06] MEDS: FAMOTIDINE 20MG TABLET PO SCH (09:14)
[2019-02-06] MEDS: BENAZEPRIL 10MG TABLET PO SCH (09:14)
[2019-02-06 12:00] VITALS: BP 156/78
[2019-02-06 16:00] VITALS: BP 158/74
[2019-02-06] MEDS: ENOXAPARIN 40MG/0.4ML SYR SUBCUT SCH (17:49)
[2019-02-06] MEDS: TEMAZEPAM 15MG CAPSULE PO PRN (19:58)
[2019-02-06] MEDS: ALPRAZOLAM 0.5 MG TABLET PO PRN (19:58)
[2019-02-06 20:00] VITALS: BP 146/77
[2019-02-06] MEDS: ATORVASTATIN CALCIUM 40MG TABLET PO SCH (21:29)
[2019-02-07] VITALS: BP 143/67
[2019-02-07] MEDS: ALBUTEROL (0.083%) 2.5MG/3ML NEB HHN SCH ×7 (02:16→19:55)
[2019-02-07] MEDS: DIPHENHYDRAMINE 50MG/ML VIAL IV SCH ×4 (03:09→20:17)
[2019-02-07] MEDS: PIPERACILLIN/TAZOBACTAM 2.25 G in DEXTROSE 5% WATER 50 ML IV SCH ×4 (03:09→20:17)
[2019-02-07 04:00] VITALS: BP 150/63
[2019-02-07] MEDS ORDERED: ALPRAZOLAM 0.5 MG TABLET PO PRN (04:00)
[2019-02-07] MEDS: METHYLPREDNISOLONE SOD SUCC 40 MG/ML VIAL IV SCH ×3 (06:24→22:09)
[2019-02-07] MEDS: OMEPRAZOLE 20MG CAPSULE EXTENDED RELEASE PO SCH ×2 (06:24→20:17)
[2019-02-07] MEDS: ARFORMOTEROL TARTRATE 15MCG/2ML NEB NEB SCH ×2 (07:56→19:56)
[2019-02-07 08:00] VITALS: BP 180/77
[2019-02-07] MEDS: THEOPHYLLINE ANHYDROUS 80 MG/15 ML 120ML PO SCH ×2 (08:45→17:42)
[2019-02-07] MEDS: FLUTICASONE PROPIONATE 50MCG/SPRAY BOTTLE BOTHNSTRLS SCH (08:45)
[2019-02-07] MEDS: POLYVINYL ALCOHOL OPHTH DROPS 15ML BOTHEYE SCH ×3 (08:46→17:43)
[2019-02-07] MEDS: FAMOTIDINE 20MG TABLET PO SCH (08:47)
[2019-02-07] MEDS: CYCLOBENZAPRINE 10MG TABLET PO SCH (08:47)
[2019-02-07] MEDS: CLONIDINE 0.1MG TABLET PO PRN ×2 (08:48→18:03)
[2019-02-07] MEDS: BENAZEPRIL 10MG TABLET PO SCH (08:48)
[2019-02-07] MEDS: LACTOBACILLUS GG CAPSULE PO SCH (10:05)
[2019-02-07 12:00] VITALS: BP 157/69
[2019-02-07] MEDS: SODIUM CHLORIDE 0.45% 1,000 ML IV SCH (12:57)
[2019-02-07 16:00] VITALS: BP 174/70
[2019-02-07] MEDS: PROMETHAZINE/DEXTROMETHORPHAN 6.25-15MG/5ML BOTTLE 120ML PO PRN (16:09)
[2019-02-07] MEDS: GUAIFENESIN 200MG TABLET PO PRN (16:14)
[2019-02-07] MEDS: ALPRAZOLAM 0.5 MG TABLET PO PRN (16:17)
[2019-02-07] MEDS: ENOXAPARIN 40MG/0.4ML SYR SUBCUT SCH (17:43)
[2019-02-07 20:00] VITALS: BP 146/88
[2019-02-07] MEDS: ATORVASTATIN CALCIUM 40MG TABLET PO SCH (20:18)
[2019-02-07] MEDS: TEMAZEPAM 15MG CAPSULE PO PRN (22:09)
[2019-02-08] VITALS: BP 147/64
[2019-02-08] MEDS: ALBUTEROL (0.083%) 2.5MG/3ML NEB HHN SCH ×9 (00:07→23:13)
[2019-02-08] MEDS: SODIUM CHLORIDE 0.45% 1,000 ML IV SCH ×2 (00:49→13:21)
[2019-02-08] MEDS: PIPERACILLIN/TAZOBACTAM 2.25 G in DEXTROSE 5% WATER 50 ML IV SCH ×5 (02:44→21:04)
[2019-02-08] MEDS: DIPHENHYDRAMINE 50MG/ML VIAL IV SCH ×4 (02:44→21:16)
[2019-02-08 04:00] VITALS: BP 147/59
[2019-02-08 06:12] LABS: HEMATOCRIT. 34.2 % (36.0-48.0); HEMOGLOBIN. 11.3 g/dL (12.0-16.0); MEAN CORPUSCULAR HEMOGLOBIN 29.2 pg (28.0-32.0); MEAN CORPUSCULAR VOLUME 88.1 fL (81.0-99.0); MEAN PLATELET VOLUME 7.8 fl (7.4-10.4); PLATELET 190 x1000/uL (130-400); RED BLOOD CELL COUNT 3.88 mill/uL (4.2-5.4); RED CELL DISTRIBUTION WIDTH 15.3 % (11.6-14.6)
[2019-02-08 06:18] LABS: CHLORIDE 104 mEq/L (98-107)
[2019-02-08 06:25] LABS: PHOSPHORUS 3.2 mg/dL (2.5-4.9)
[2019-02-08 06:30] LABS: THEOPHYLLINE 3.3 ug/mL (10-20)
[2019-02-08] MEDS: OMEPRAZOLE 20MG CAPSULE EXTENDED RELEASE PO SCH ×2 (06:59→21:04)
[2019-02-08] MEDS: ARFORMOTEROL TARTRATE 15MCG/2ML NEB NEB SCH ×2 (07:46→20:17)
[2019-02-08 08:00] VITALS: BP 156/81
[2019-02-08] MEDS: METHYLPREDNISOLONE SOD SUCC 40 MG/ML VIAL IV SCH ×3 (09:44→21:04)
[2019-02-08] MEDS: LACTOBACILLUS GG CAPSULE PO SCH (09:45)
[2019-02-08] MEDS: POLYVINYL ALCOHOL OPHTH DROPS 15ML BOTHEYE SCH ×3 (09:45→17:27)
[2019-02-08] MEDS: CYCLOBENZAPRINE 10MG TABLET PO SCH (09:46)
[2019-02-08] MEDS: FAMOTIDINE 20MG TABLET PO SCH (09:46)
[2019-02-08] MEDS: BENAZEPRIL 10MG TABLET PO SCH (09:46)
[2019-02-08] MEDS: THEOPHYLLINE ANHYDROUS 80 MG/15 ML 120ML PO SCH ×2 (09:46→17:27)
[2019-02-08 09:53] LABS: PLATELET ESTIMATE NORMAL
[2019-02-08] MEDS: GUAIFENESIN 200MG TABLET PO PRN ×2 (10:32→17:35)
[2019-02-08 12:00] VITALS: BP 145/78
[2019-02-08 16:00] VITALS: BP 157/84
[2019-02-08] MEDS: DIPHENHYDRAMINE 50MG/ML VIAL IV PRN (16:07)
[2019-02-08] MEDS: ENOXAPARIN 40MG/0.4ML SYR SUBCUT SCH (17:27)
[2019-02-08] MEDS: PROMETHAZINE/DEXTROMETHORPHAN 6.25-15MG/5ML BOTTLE 120ML PO PRN (17:35)
[2019-02-08 20:00] VITALS: BP 145/79
[2019-02-08] MEDS: ATORVASTATIN CALCIUM 40MG TABLET PO SCH (21:04)
[2019-02-08] MEDS: ALPRAZOLAM 0.5 MG TABLET PO PRN (21:16)
[2019-02-08] MEDS: TEMAZEPAM 15MG CAPSULE PO PRN (21:16)
[2019-02-09] VITALS: BP 158/80
[2019-02-09] MEDS: ALBUTEROL (0.083%) 2.5MG/3ML NEB HHN SCH ×4 (02:09→11:14)
[2019-02-09] MEDS: DIPHENHYDRAMINE 50MG/ML VIAL IV SCH ×2 (03:10→09:00)
[2019-02-09] MEDS: SODIUM CHLORIDE 0.45% 1,000 ML IV SCH (03:11)
[2019-02-09 04:00] VITALS: BP 148/79
[2019-02-09] MEDS: OMEPRAZOLE 20MG CAPSULE EXTENDED RELEASE PO SCH (05:52)
[2019-02-09] MEDS: METHYLPREDNISOLONE SOD SUCC 40 MG/ML VIAL IV SCH ×2 (05:52→13:15)
[2019-02-09] MEDS: ARFORMOTEROL TARTRATE 15MCG/2ML NEB NEB SCH (08:10)
[2019-02-09] MEDS: BENAZEPRIL 10MG TABLET PO SCH (08:39)
[2019-02-09] MEDS: LACTOBACILLUS GG CAPSULE PO SCH (08:56)
[2019-02-09] MEDS: POLYVINYL ALCOHOL OPHTH DROPS 15ML BOTHEYE SCH (08:57)
[2019-02-09] MEDS: FAMOTIDINE 20MG TABLET PO SCH (08:57)
[2019-02-09] MEDS: CYCLOBENZAPRINE 10MG TABLET PO SCH (08:58)
[2019-02-09] MEDS: THEOPHYLLINE ANHYDROUS 80 MG/15 ML 120ML PO SCH (09:05)
[2019-02-09] MEDS: CLONIDINE 0.1MG TABLET PO PRN (11:43)
[2019-02-09 11:46] VITALS: BP 168/79
[2019-02-09 12:00] VITALS: BP 168/79
== END 2019-02-09 13:55 | disposition home or self-care (01) | DRG 190 ==
LOC: ER 22:52 → 8WST 01-27 02:41 → EDBEDREQ 01-27 03:11 → EDBEDREQTM 01-27 03:11 → ENRESERV 01-27 07:53
PROVIDERS: ADMIT Internal Medicine; ATTEND Internal Medicine
PROC: 02HV33Z Insertion of Infusion Device into Superior Vena Cava, Percutaneous Approach (ICD-10-PCS; principal; 2019-02-02)
PROC: B5181ZA Fluoroscopy of Superior Vena Cava using Low Osmolar Contrast, Guidance (ICD-10-PCS; 2019-02-02)
PROC: B548ZZA Ultrasonography of Superior Vena Cava, Guidance (ICD-10-PCS; 2019-02-02)
DX: J44.1 Chronic obstructive pulmonary disease with (acute) exacerbation (principal); J18.9 Pneumonia, unspecified organism; E46 Unspecified protein-calorie malnutrition; R64 Cachexia; J44.0 Chronic obstructive pulmonary disease with (acute) lower respiratory infection; I25.10 Atherosclerotic heart disease of native coronary artery without angina pectoris; I48.0 Paroxysmal atrial fibrillation; D69.6 Thrombocytopenia, unspecified; E78.00 Pure hypercholesterolemia, unspecified; E78.5 Hyperlipidemia, unspecified; I10 Essential (primary) hypertension; I27.20 Pulmonary hypertension, unspecified; J32.9 Chronic sinusitis, unspecified; M54.5 Low back pain; R16.0 Hepatomegaly, not elsewhere classified; Z68.21 Body mass index [BMI] 21.0-21.9, adult; Z88.0 Allergy status to penicillin; Z87.01 Personal history of pneumonia (recurrent); Z98.61 Coronary angioplasty status; Z88.2 Allergy status to sulfonamides; Z88.1 Allergy status to other antibiotic agents; Z88.5 Allergy status to narcotic agent; Z88.8 Allergy status to other drugs, medicaments and biological substances; Z79.899 Other long term (current) drug therapy
CPT/HCPCS: 36415; 36573; 71045; 71046; 71250; 78582; 80048; 80198; 83520; 83735; 83880; 84100; 84439; 84443; 84481; 84484; 85049; 85651; 86376; 87070; 93005; 93970; 94640; 97162; 97166; 99285; A9558; C1725; C1893; J1200; J1650; J2543; J2920; J2930; J3475; J3490; J7040; J7060; J7611; Q0163

== ENCOUNTER → 2019-10-05 | Outpatient (CLI) | payer MEDICARE ==
[~2019-10-05] MED LIST changes: +OMEP20CA14 PO; -OMEP20CA5 PO
== END | disposition home or self-care (01) ==
LOC: NM 07:49
PROVIDERS: ATTEND Internal Medicine
DX: M17.0 Bilateral primary osteoarthritis of knee (principal); M19.072 Primary osteoarthritis, left ankle and foot; M19.071 Primary osteoarthritis, right ankle and foot; M19.012 Primary osteoarthritis, left shoulder; M19.011 Primary osteoarthritis, right shoulder; M19.019 Primary osteoarthritis, unspecified shoulder; M19.022 Primary osteoarthritis, left elbow; M19.021 Primary osteoarthritis, right elbow; M89.8X0 Other specified disorders of bone, multiple sites; M18.9 Osteoarthritis of first carpometacarpal joint, unspecified; M19.042 Primary osteoarthritis, left hand; M19.041 Primary osteoarthritis, right hand; M16.0 Bilateral primary osteoarthritis of hip
CPT/HCPCS: 78306; A9503

== ENCOUNTER 2021-10-18 06:26 | Inpatient (IN) | payer MEDICARE ==
[2021-10-18] VITALS (45 sets, daily range): BP systolic 80–140; BP diastolic 37–98
[~2021-10-18] VITALS: Ht 167.6 cm; Wt 55.3 kg
[~2021-10-18 06:26] MED LIST changes: +BENA-8 PO; -BENA20TA10 PO; -METH-612 PO; +METH-774 PO
[2021-10-18] MEDS ORDERED: NITROGLYCERIN 50MCG/ML 10ML VIAL (CATH LAB) IV ONE (07:00)
[2021-10-18] MEDS ORDERED: NICARDIPINE 100MCG/ML 10ML VIAL (CATH LAB) IV ONE (07:00)
[2021-10-18] MEDS ORDERED: PHENYLEPHRINE 100MCG/ML 10ML VIAL (CATH LAB) ONE (07:00)
[2021-10-18] MEDS ORDERED: FLUT15.844 BOTHNSTRLS (07:43)
[2021-10-18] MEDS ORDERED: DILT120C11 MT (07:43)
[2021-10-18] MEDS ORDERED: IODIXANOL 320MG/ML 100 ML BOTTLE IV ONE ×2 (07:46→09:21)
[2021-10-18] MEDS ORDERED: HEPARIN 1000 UNITS/ML 10ML ONE (07:46)
[2021-10-18] MEDS ORDERED: MIDAZOLAM HCL 2 MG/2 ML VIAL ONE (07:46)
[2021-10-18] MEDS ORDERED: LIDOCAINE HCL 1% 10 MG/ML 10ML VIAL ONE ×2 (07:46→08:44)
[2021-10-18] MEDS ORDERED: FENTANYL CITRATE/PF 50MCG/ML 2ML VIAL ONE ×2 (07:46→10:33)
[2021-10-18] MEDS ORDERED: ATROPINE SULFATE 1MG/10ML SYR ONE ×2 (08:49→10:05)
[2021-10-18] MEDS ORDERED: EPINEPHRINE 0.1MG/ML (1:10,000) 10ML SYR ONE (09:25)
[2021-10-18] MEDS ORDERED: CLOPIDOGREL 75MG TABLET ONE (10:08)
[2021-10-18] MEDS ORDERED: ASPIRIN 325MG TABLET ONE (10:08)
[2021-10-18] MEDS ORDERED: ONDANSETRON HCL 4MG/2ML INJ IV PRN (11:00)
[2021-10-18] MEDS ORDERED: ATROPINE SULFATE 1MG/10ML SYR IV PRN (11:00)
[2021-10-18] MEDS ORDERED: PHENYLEPHRINE HCL 0.5% 15ML NASAL SPRAY BOTHNSTRLS PRN ×2 (14:00→18:00)
[2021-10-18] MEDS: MIDODRINE HCL 5MG TABLET PO SCH ×2 (15:24→17:00)
[2021-10-18] MEDS ORDERED: MIDODRINE HCL 5MG TABLET PO SCH (17:00)
[2021-10-18] MEDS: ACETAMINOPHEN 325MG TABLET PO PRN (19:14)
[2021-10-19] VITALS (39 sets, daily range): BP systolic 69–155; BP diastolic 41–106
[2021-10-19 05:37] LABS: HEMOGLOBIN. 10.4 g/dL (12.0-16.0); MEAN CORPUSCULAR HEMOGLOBIN 28.3 pg (28.0-32.0); MEAN CORPUSCULAR VOLUME 89.5 fL (81.0-99.0); MEAN PLATELET VOLUME 6.9 fl (7.4-10.4); PLATELET 244 x1000/uL (130-400); RED BLOOD CELL COUNT 3.69 mill/uL (4.2-5.4); RED CELL DISTRIBUTION WIDTH 15.2 % (11.6-14.6)
[2021-10-19 05:49] LABS: CHLORIDE 107 mEq/L (98-107)
[2021-10-19] MEDS: MIDODRINE HCL 5MG TABLET PO SCH (08:40)
[2021-10-19] MEDS ORDERED: CLOPIDOGREL 75MG TABLET PO SCH (09:00)
[2021-10-19] MEDS: CLOPIDOGREL 75MG TABLET PO SCH (16:08)
[2021-10-19] MEDS: ATORVASTATIN CALCIUM 20MG TABLET PO SCH (20:56)
[2021-10-19] MEDS: ACETAMINOPHEN 325MG TABLET PO PRN (20:56)
[2021-10-20] VITALS (14 sets, daily range): BP systolic 64–136; BP diastolic 51–99
[2021-10-20 01:59] LABS: PLATELET ESTIMATE NORMAL
[2021-10-20 03:36] LABS: CLARITY URINE CLEAR (CLEAR); COLOR URINE YELLOW (YELLOW); KETONES URINE NEGATIVE (NEGATIVE); LEUKOCYTE ESTERASE URINE NEGATIVE (NEGATIVE); NITRITE URINE NEGATIVE (NEGATIVE); OCCULT BLOOD URINE NEGATIVE (NEGATIVE); PH URINE 6.5 (4.5-8.0); PROTEIN URINE NEGATIVE (NEGATIVE); SPECIFIC GRAVITY URINE 1.011 (1.005-1.030); UROBILINOGEN URINE 0.2 E.U./dL (0.2-1.0)
[2021-10-20 03:43] LABS: *AMPHETAMINES SCREEN URINE NEGATIVE (NEGATIVE); *BARBITURATES SCREEN URINE NEGATIVE (NEGATIVE); *BENZODIAZEPINES SCREEN URINE NEGATIVE (NEGATIVE); *COCAINE SCREEN URINE NEGATIVE (NEGATIVE); CANNABINOID URINE SCREEN NEGATIVE (NEGATIVE); METHADONE URINE SCREEN NEGATIVE (NEGATIVE); OPIATES URINE SCREEN NEGATIVE (NEGATIVE); PHENCYCLIDINE URINE SCREEN NEGATIVE (NEGATIVE)
[2021-10-20 08:15] LABS: CHLORIDE 106 mEq/L (98-107)
[2021-10-20 08:24] LABS: TOTAL IRON BINDING CAPACITY 319 ug/dL (250-450)
[2021-10-20] MEDS: CLOPIDOGREL 75MG TABLET PO SCH ×2 (08:59→17:02)
[2021-10-20] MEDS ORDERED: SODIUM CHLORIDE 0.9% 1,000 ML IV SCH (12:15)
[2021-10-20] MEDS ORDERED: ALBUTEROL (0.083%) 2.5MG/3ML NEB HHN SCH (13:00)
[2021-10-20] MEDS: MIDODRINE HCL 2.5MG TABLET PO SCH ×2 (13:01→17:02)
[2021-10-20] MEDS: ENOXAPARIN 40MG/0.4ML SYR SUBCUT SCH (13:02)
[2021-10-20] MEDS: BUDESONIDE 0.5MG/2ML NEB HHN SCH ×2 (13:55→20:40)
[2021-10-20] MEDS: ALBUTEROL (0.083%) 2.5MG/3ML NEB HHN SCH ×2 (13:55→20:40)
[2021-10-20] MEDS ORDERED: PREDNISONE 20MG TABLET PO NR (14:00)
[2021-10-20] MEDS: ATORVASTATIN CALCIUM 20MG TABLET PO SCH (20:32)
[2021-10-20] MEDS: IPRATROPIUM BROMIDE (0.02%) 0.5MG/2.5ML NEB HHN SCH (20:40)
[2021-10-21] VITALS (9 sets, daily range): BP systolic 109–139; BP diastolic 22–100
[2021-10-21] MEDS: IPRATROPIUM BROMIDE (0.02%) 0.5MG/2.5ML NEB HHN SCH ×3 (00:56→13:20)
[2021-10-21] MEDS: ALBUTEROL (0.083%) 2.5MG/3ML NEB HHN SCH ×3 (00:56→13:24)
[2021-10-21] MEDS: ACETAMINOPHEN 325MG TABLET PO PRN (02:58)
[2021-10-21 06:38] LABS: BASOPHILS % 0.3 % (0.0-2.0); EOSINOPHILS % 0.1 % (0.0-5.0); HEMATOCRIT. 30.8 % (36.0-48.0); HEMOGLOBIN. 10.1 g/dL (12.0-16.0); LYMPHOCYTES % 10.7 % (20.0-50.0); MEAN CORPUSCULAR HEMOGLOBIN 28.8 pg (28.0-32.0); MEAN CORPUSCULAR VOLUME 87.9 fL (81.0-99.0); MEAN PLATELET VOLUME 7.2 fl (7.4-10.4); MONOCYTES % 9.6 % (2.0-8.0); NEUTROPHILS % 79.3 % (40.0-76.0); PLATELET 227 x1000/uL (130-400); RED BLOOD CELL COUNT 3.51 mill/uL (4.2-5.4); RED CELL DISTRIBUTION WIDTH 15.1 % (11.6-14.6)
[2021-10-21 07:59] LABS: CHLORIDE 108 mEq/L (98-107)
[2021-10-21] MEDS ORDERED: PREDNISONE 20MG TABLET PO NR (08:00)
[2021-10-21] MEDS: MIDODRINE HCL 2.5MG TABLET PO SCH ×2 (09:00→13:00)
[2021-10-21] MEDS: CLOPIDOGREL 75MG TABLET PO SCH (09:16)
[2021-10-21] MEDS: ENOXAPARIN 40MG/0.4ML SYR SUBCUT SCH (09:16)
[2021-10-21] MEDS: BUDESONIDE 0.5MG/2ML NEB HHN SCH (09:23)
== END 2021-10-21 14:35 | disposition home or self-care (01) | DRG 36 ==
LOC: CCL 06:26 → CVICU 06:27 → 5EST 10-19 16:15
PROVIDERS: ADMIT Specialist; ATTEND Specialist
PROC: B313YZZ Fluoroscopy of Right Common Carotid Artery using Other Contrast (ICD-10-PCS; principal; 2021-10-18)
PROC: 037H3DZ Dilation of Right Common Carotid Artery with Intraluminal Device, Percutaneous Approach (ICD-10-PCS; 2021-10-18)
PROC: 037K3DZ Dilation of Right Internal Carotid Artery with Intraluminal Device, Percutaneous Approach (ICD-10-PCS; 2021-10-18)
PROC: B31RYZZ Fluoroscopy of Intracranial Arteries using Other Contrast (ICD-10-PCS; 2021-10-18)
PROC: B316YZZ Fluoroscopy of Right Internal Carotid Artery using Other Contrast (ICD-10-PCS; 2021-10-18)
PROC: B31 Imaging, Upper Arteries, Fluoroscopy (ICD-10-PCS; 2021-10-18)
DX: I65.21 Occlusion and stenosis of right carotid artery (principal); I25.10 Atherosclerotic heart disease of native coronary artery without angina pectoris; I10 Essential (primary) hypertension; R00.1 Bradycardia, unspecified; Z20.822 Contact with and (suspected) exposure to COVID-19; I95.9 Hypotension, unspecified; J44.9 Chronic obstructive pulmonary disease, unspecified; E78.5 Hyperlipidemia, unspecified; Z88.6 Allergy status to analgesic agent; Z79.899 Other long term (current) drug therapy; R91.1 Solitary pulmonary nodule; R60.0 Localized edema; R00.0 Tachycardia, unspecified
CPT/HCPCS: 36222; 36415; 37215; 71045; 80048; 80305; 81003; 83540; 83550; 85025; 85347; 87426; 94640; C1725; C1760; C1769; C1876; C1884; C1893; C1894; J0461; J1644; J1650; J2250; J2370; J2405; J3010; J3490; J7512; J7626; Q9967